=== PATIENT | female | born 1950 | race American Indian/Alaskan Native ===

== ENCOUNTER 2016-09-02 13:12 | Emergency (ER) | payer MEDICAID, MEDICARE ==
[2016-09-02 13:12] VITALS: BMI 34.2
--- NOTE | 2016-09-02 14:20 | RAD ---
PROCEDURE: CHEST RADIOGRAPH, 1 VIEW HISTORY: fall COMPARISON: None available. FINDINGS: LUNGS: The lungs are well inflated. There is linear atelectasis/scarring in the lower lobes. There is no focal consolidation. PLEURA: No pneumothorax or pleural fluid seen. CARDIOVASCULAR: Normal. OSSEOUS STRUCTURES: No significant abnormalities. VISUALIZED UPPER ABDOMEN: Normal. OTHER FINDINGS: None. IMPRESSION: No acute findings.
--- NOTE | 2016-09-02 14:28 | RAD ---
PROCEDURE: Radiographs of the Right Shoulder HISTORY: Fall COMPARISON: No prior. FINDINGS: BONES: There is no acute fracture or bone destruction. Bone alignment and mineralization are normal. JOINTS: There is mild degenerative osteoarthrosis in the acromioclavicular joint. The glenohumeral joint is normal. SOFT TISSUES: Normal. OTHER FINDINGS: None. IMPRESSION: No acute fracture or dislocation.
--- NOTE | 2016-09-02 14:59 | CT ---
PROCEDURE: CT HEAD WITHOUT CONTRAST. HISTORY: Fall COMPARISON: None available. TECHNIQUE: Axial computed tomography images were obtained through the head/brain without intravenous contrast. Radiation dose: Total exam DLP = 1054.79 mGy-cm. This CT exam was performed using one or more of the following dose reduction techniques: Automated exposure control, adjustment of the mA and/or kV according to patient size, and/or use of iterative reconstruction technique. FINDINGS: HEMORRHAGE: No intracranial hemorrhage. BRAIN: Rahman-white matter differentiation is preserved. There is no mass, mass effect or abnormal extra-axial fluid collection. There are symmetric senile calcifications in bilateral basal ganglia. VENTRICLES: There is mild age-related global parenchymal volume loss and proportionate enlargement of the ventricles and cortical sulci. There is nonspecific prominence of bifrontal extra-axial CSF space. CALVARIUM: There is no calvarial fracture or extracranial soft tissue swelling. PARANASAL SINUSES: Unremarkable as visualized. No significant inflammatory changes. MASTOID AIR CELLS: Unremarkable as visualized. No inflammatory changes. OTHER FINDINGS: None. IMPRESSION: No acute intracranial abnormality. Mild age-related global parenchymal volume loss.
--- NOTE | 2016-09-02 15:05 | CT ---
PROCEDURE: CT Cervical Spine without contrast HISTORY: Fall COMPARISON: None available. TECHNIQUE: Axial computed tomography images were obtained of the cervical spine without the use of intravenous contrast. Coronal and sagittal reformatted images were created and reviewed. Radiation dose: Total exam DLP = 521.53 mGy-cm. This CT exam was performed using one or more of the following dose reduction techniques: Automated exposure control, adjustment of the mA and/or kV according to patient size, and/or use of iterative reconstruction technique. FINDINGS: VERTEBRAE: There is normal alignment of the cervical vertebral bodies. There is straightening of the cervical spine with loss of normal cervical lordosis. There is no acute fracture or traumatic anterior listhesis. There is diffuse bone demineralization. The craniocervical junction is normal. The atlantoaxial joint is normal. DISCS/SPINAL CANAL/NEURAL FORAMINA: There is mild multilevel degenerative disc disease due to combination of disc osteophyte complexes, uncovertebral joint hypertrophy and multilevel facet arthropathy, worse at C5-6 with severe left neural foraminal stenosis and mild spinal canal stenosis. PARASPINAL SOFT TISSUES: There is no prevertebral soft tissue thickening. OTHER FINDINGS: No apical pneumothorax. IMPRESSION: No acute fracture or traumatic anterolisthesis.
--- NOTE | 2016-09-02 16:09 | C.PDOC ---
History Of Present Illness 65 year old female presents to the ED with complaints of pain to her head, neck , and right shoulder s/p slipping and falling today. Patient states she had brief LOC and notes the pain to her right shoulder radiates to her chest. She has associated nausea and denies SOB, vomiting, change in vision, dizziness, or any other complaints at this time. - HPI Time Seen by Provider: 09/02/16 13:32 Chief Complaint (Nursing): Trauma History Per: Patient History/Exam Limitations: no limitations Onset/Duration Of Symptoms: Hrs Severity: Mild - Fall Fall:Prior To Injury: Slipped Past Medical History Reviewed: Historical Data, Nursing Documentation, Vital Signs Vital Signs: Last Vital Signs Temp 98.2 F 09/02/16 16:21 Pulse 75 09/02/16 16:21 Resp 18 09/02/16 16:21 BP 169/89 H 09/02/16 16:21 Pulse Ox 95 09/02/16 19:12 - Medical History PMH: Arthritis, Back Problems (HERNIATED), HTN, Hypercholesterolemia, Hyperthyroidism - [facility] Procedures CLOSURE SKIN & SUBCUTANEOUS NEC (02/16/13) CORONAR ARTERIOGR-2 CATH (07/17/05) LEFT HEART CARDIAC CATH (07/17/05) LT HEART ANGIOCARDIOGRAM (07/17/05) TETANUS TOXOID ADMINIST (02/16/13) Family History: States: Unknown Family Hx - Social History Hx Tobacco Use: No Hx Alcohol Use: No - Immunization History Hx Tetanus Toxoid Vaccination: No Hx Influenza Vaccination: No Hx Pneumococcal Vaccination: No Review Of Systems Except As Marked, All Systems Reviewed And Found Negative. Constitutional: Negative for: Fever, Chills Eyes: Negative for: Vision Change Respiratory: Negative for: Shortness of Breath Gastrointestinal: Positive for: Nausea. Negative for: Vomiting, Abdominal Pain Musculoskeletal: Positive for: Neck Pain, Shoulder Pain (+Right shoulder pain), Other (+Head pain). Negative for: Back Pain Neurological: Negative for: Weakness, Numbness, Dizziness Physical Exam - Physical Exam Appears: Non-toxic, No Acute Distress Skin: Normal Color, Warm, Dry Head: Normacephalic, No Tenderness, No Swelling, No Abrasion, No Laceration Eye(s): bilateral: Normal Inspection Oral Mucosa: Moist Neck: Supple Chest: Symmetrical, No Deformity, Tenderness (+Tenderness to the right anterior chest), No Ecchymosis Respiratory: No Accessory Muscle Use Back: Other (+Diffuse tenderness +Tenderness to the right scapula) Extremity: Normal ROM, No Deformity Neurological/Psych: Oriented x3, Normal Speech, Normal Cognition, Normal Motor, Normal Sensation Gait: Steady ED Course And Treatment ECG: Interpreted By Me, Viewed By Me ECG Rhythm: Sinus Rhythm Interpretation Of ECG: +LVH Rate From EC O2 Sat by Pulse Oximetry: 95 (Room air) Pulse Ox Interpretation: Normal - Radiology CXR: Viewed By Me, Read By Radiologist CXR Interpretation: Yes: No Acute Disease - Other Rad Right Shoulder X-ray X-Ray: Viewed By Me, Read By Radiologist Interpretation: Accession No. : [id number]. Patient Name / ID : SYEDA VERNON / [id number]. Exam Date : 09/02/2016 13:58:01 ( Approved ). Study Comment : Sex / Age : F / 65Y. Creator : Jacquelin Macedo MD. Dictator : Jacquelin Macedo MD. Cake Wrapper : Nursing Home Admissions Director : Jacquelin Macedo MD. Approver2 : Report Date : 09/02/2016 14:27:24. My Comment : . PROCEDURE: Radiographs of the Right Shoulder. HISTORY: Fall. COMPARISON: No prior. FINDINGS: BONES: There is no acute fracture or bone destruction. Bone alignment and mineralization are normal. JOINTS: There is mild degenerative osteoarthrosis in the acromioclavicular joint. The glenohumeral joint is normal. SOFT TISSUES : Normal. OTHER FINDINGS: None. IMPRESSION: No acute fracture or dislocation. - CT Scan/US CT Head w/o contrast Other Rad Studies (CT/US): Read By Radiologist, Radiology Report Reviewed CT/US Interpretation: Accession No. : [id number]. Patient Name / ID : SYEDA VERNON / [id number]. Exam Date : 09/02/2016 14:30:04 ( Approved ). Study Comment : Sex / Age : F / 65Y. Creator : Jacquelin Macedo MD. Dictator : Jacquelin Macedo MD. Cake Wrapper : Nursing Home Admissions Director : Jacquelin Macedo MD. Approver2 : Report Date : 09/02/2016 14:57:49. My Comment : . PROCEDURE: CT HEAD WITHOUT CONTRAST. HISTORY: Fall. COMPARISON: None available. TECHNIQUE: Axial computed tomography images were obtained through the head/brain without intravenous contrast. Radiation dose: Total exam DLP = 1054.79 mGy-cm. This CT exam was performed using one or more of the following dose reduction techniques: Automated exposure control, adjustment of the mA and/or kV according to patient size, and/or use of iterative reconstruction technique. FINDINGS: HEMORRHAGE: No intracranial hemorrhage. BRAIN: Rahman-white matter differentiation is preserved. There is no mass, mass effect or abnormal extra- axial fluid collection. There are symmetric senile calcifications in bilateral basal ganglia. VENTRICLES: There is mild age-related global parenchymal volume loss and proportionate enlargement of the ventricles and cortical sulci. There is nonspecific prominence of bifrontal extra-axial CSF space. CALVARIUM: There is no calvarial fracture or extracranial soft tissue swelling. PARANASAL SINUSES: Unremarkable as visualized. No significant inflammatory changes. MASTOID AIR CELLS: Unremarkable as visualized. No inflammatory changes. OTHER FINDINGS: None. IMPRESSION: No acute intracranial abnormality. Mild age-related global parenchymal volume loss. CT Cervical Spine w/o contrast Other Rad Studies (CT/US): Read By Radiologist, Radiology Report Reviewed CT/US Interpretation: Accession No. : [id number]. Patient Name / ID : SYEDA VERNON / [id number]. Exam Date : 09/02/2016 14:32:55 ( Approved ). Study Comment : Sex / Age : F / 65Y. Creator : Jacquelin Macedo MD. Dictator : Jacquelin Macedo MD. Cake Wrapper : Nursing Home Admissions Director : Jacquelin Macedo MD. Approver2 : Report Date : 09/02/2016 15:03:51. My Comment : . PROCEDURE: CT Cervical Spine without contrast. HISTORY: Fall. COMPARISON: None available. TECHNIQUE: Axial computed tomography images were obtained of the cervical spine without the use of intravenous contrast. Coronal and sagittal reformatted images were created and reviewed. Radiation dose: Total exam DLP = 521.53 mGy- cm. This CT exam was performed using one or more of the following dose reduction techniques: Automated exposure control, adjustment of the mA and/or kV according to patient size, and/or use of iterative reconstruction technique. FINDINGS: VERTEBRAE: There is normal alignment of the cervical vertebral bodies. There is straightening of the cervical spine with loss of normal cervical lordosis. There is no acute fracture or traumatic anterior listhesis. There is diffuse bone demineralization. The craniocervical junction is normal. The atlantoaxial joint is normal. DISCS/SPINAL CANAL/NEURAL FORAMINA: There is mild multilevel degenerative disc disease due to combination of disc osteophyte complexes, uncovertebral joint hypertrophy and multilevel facet arthropathy, worse at C5-6 with severe left neural foraminal stenosis and mild spinal canal stenosis. PARASPINAL SOFT TISSUES: There is no prevertebral soft tissue thickening. OTHER FINDINGS: No apical pneumothorax. IMPRESSION: No acute fracture or traumatic anterolisthesis. Progress Note: CT Cervical Spine w/o contrast, CT Head w/o contrast, CXR, EKG, Right Shoulder X-ray ordered and reviewed. Patient treated with Tylenol. On re -exam patient is ambulatory in ED, denies SOB, denies chest pain. Family member is on the bedside. Patient is stable to be d/c home. Rx given and patient advised to follow up with her PMD and to return to Ed immediately if she feels worse. Disposition - Disposition Disposition: HOME/ ROUTINE Disposition Time: 16:05 Condition: IMPROVED Additional Instructions: Follow up with PMD within 1-2 days. Return to ED if feel worse. Prescriptions: oxyCODONE/Acetaminophen [Percocet 5/325 mg Tab] 1 tab PO QID PRN #20 tab PRN Reason: Pain Instructions: Contusion in Adults (ED), Head Injury (ED) - Clinical Impression Clinical Impression: Multiple contusions, Minor closed head injury - PA / CLERK RATING / Resident Statement MD/DO has reviewed & agrees with the documentation as recorded. - Scribe Statement The provider has reviewed the documentation as recorded by the Scribe Manoj Chung. All medical record entries made by the Scribe were at my direction and personally dictated by me. I have reviewed the chart and agree that the record accurately reflects my personal performance of the history, physical exam, medical decision making, and the department course for this patient. I have also personally directed, reviewed, and agree with the discharge instructions and disposition.
[2016-09-02 16:21] VITALS: BP 169/89; PULSE 75; RESP 18; TEMP 98.2
[2016-09-02 19:02] VITALS: O2SAT 95
--- NOTE | 2016-09-10 08:38 | CARD ---
APPROVED REPORT EKG Measurement Heart [id number] <Conclusion> Normal sinus rhythm Minimal voltage criteria for LVH, may be normal variant Borderline ECG
== END 2016-09-02 16:35 | disposition home or self-care (01) ==
LOC: C.ER 13:12
DX: T14.8 Other injury of unspecified body region (principal); W01.0XXA Fall on same level from slipping, tripping and stumbling without subsequent striking against object, initial encounter

== ENCOUNTER 2017-05-13 12:35 | Emergency (ER) | payer MEDICARE ==
[2017-05-13 12:36] VITALS: BMI 34.2
[2017-05-13 12:49] VITALS: BP 122/77; PULSE 89; RESP 20; TEMP 98; O2SAT 98
[2017-05-13] MEDS ORDERED: Bacitracin 500 Units/gm Oint Foilpak UD TOP ONE (13:48)
[2017-05-13] MEDS ORDERED: Bacitracin 500 Units/gm Oint Foilpak UD ONE (14:04)
--- NOTE | 2017-05-13 14:16 | RAD ---
PROCEDURE: Right Knee Radiographs. HISTORY: s/p fall COMPARISON: None. FINDINGS: BONES: . No fracture. Diffuse spurring prior JOINTS: Medial femoral tibial and patellofemoral osteoarthritis. JOINT EFFUSION: None. OTHER FINDINGS: None. IMPRESSION: No fracture or dislocation. Osteoarthrosis.
--- NOTE | 2017-05-13 14:25 | RAD ---
PROCEDURE: Radiographs of the right tibia and fibula. HISTORY: s/p fall COMPARISON: None available. TECHNIQUE: Frontal and lateral views obtained. FINDINGS: BONES: No fracture or destructive lesion. . Tibial spine spurring. Medial knee joint line spurring posterior patellar spurring JOINT SPACES: Patellofemoral and medial femoral tibial joint space narrowing OTHER FINDINGS: Few scattered anterior phleboliths IMPRESSION: No fracture or dislocation. Knee osteoarthrosis
--- NOTE | 2017-05-13 14:32 | C.PDOC ---
History Of Present Illness 66 year old female presents to the ED for evaluation of bilateral neck, shoulder , lower back and bilateral knee pain after she tripped and fell forward on uneven pavement yesterday. Patient states she fell and landed onto her hands and knees. She denies head injury/LOC, urinary/bowel incontinence, extremity numbness/weakness. Time Seen by Provider: 05/13/17 13:19 Chief Complaint (Nursing): Back Pain History Per: Patient History/Exam Limitations: no limitations Onset/Duration Of Symptoms: Hrs Current Symptoms Are (Timing): Still Present Quality Of Discomfort: "Pain" Previous Symptoms: Back Pain, Neck Pain Associated Symptoms: denies: Incontinence, New Weakness, New Numbness Additional History Per: Patient Past Medical History Reviewed: Historical Data, Nursing Documentation, Vital Signs Vital Signs: Last Vital Signs Temp 98.0 F 05/13/17 12:46 Pulse 89 05/13/17 12:46 Resp 20 05/13/17 14:52 BP 122/77 05/13/17 12:46 Pulse Ox 98 05/15/17 13:55 - Medical History PMH: Arthritis, Back Problems (HERNIATED), HTN, Hypercholesterolemia, Hyperthyroidism Denies: Chronic Kidney Disease Surgical History: No Surg Hx - [facility] Procedures CLOSURE SKIN & SUBCUTANEOUS NEC (02/16/13) CORONAR ARTERIOGR-2 CATH (07/17/05) LEFT HEART CARDIAC CATH (07/17/05) LT HEART ANGIOCARDIOGRAM (07/17/05) TETANUS TOXOID ADMINIST (02/16/13) Family History: States: Unknown Family Hx - Social History Hx Tobacco Use: No Hx Alcohol Use: No Hx Substance Use: No - Immunization History Hx Tetanus Toxoid Vaccination: No Hx Influenza Vaccination: Yes Hx Pneumococcal Vaccination: No Review Of Systems Genitourinary: Negative for: Incontinence Musculoskeletal: Positive for: Neck Pain, Shoulder Pain (bilateral ), Back Pain (lower), Other (bilateral knee pain ) Neurological: Positive for: Other (no head injury, no LOC ). Negative for: Weakness, Numbness Physical Exam - Physical Exam Appears: Well, Non-toxic, No Acute Distress Skin: Warm, Dry, Ecchymosis (to right knee ), Other (abrasion to right 5th digit and right knee ) Head: Atraumatic, Normacephalic Eye(s): bilateral: Normal Inspection Oral Mucosa: Moist Neck: No Midline Cervical Tenderness, Paracervical Tenderness (bilaterally ) Chest: Symmetrical, No Deformity, No Tenderness Cardiovascular: Rhythm Regular, No Murmur Respiratory: Normal Breath Sounds, No Rales, No Rhonchi, No Wheezing Gastrointestinal/Abdominal: Soft, No Tenderness, No Guarding, No Rebound Back: No Vertebral Tenderness, Other (trapezius tenderness bilaterally ) Extremity: Normal ROM (shoulders and elbows ), Tenderness (right knee and tibia) , No Calf Tenderness, Capillary Refill (less than 2 seconds ), No Deformity, No Swelling Pulses: Left Radial: Normal, Right Radial: Normal, Left Dorsalis Pedis: Normal, Right Dorsalis Pedis: Normal Neurological/Psych: Oriented x3, Normal Speech, Normal Cognition, Normal Motor, Normal Sensation Gait: Steady ED Course And Treatment O2 Sat by Pulse Oximetry: 98 (on RA) Pulse Ox Interpretation: Normal - Other Rad right knee XR X-Ray: Interpreted by Me, Viewed By Me, Read By Radiologist Interpretation: PROCEDURE: Right Knee Radiographs. HISTORY: s/p fall. COMPARISON: None. FINDINGS: BONES: . No fracture. Diffuse spurring prior. JOINTS: Medial femoral tibial and patellofemoral osteoarthritis. JOINT EFFUSION: None. OTHER FINDINGS: None. IMPRESSION: No fracture or dislocation. Osteoarthrosis. tibia/fibula XR X-Ray: Interpreted by Me, Viewed By Me, Read By Radiologist Interpretation: PROCEDURE: Radiographs of the right tibia and fibula. HISTORY : s/p fall. COMPARISON: None available. TECHNIQUE: Frontal and lateral views obtained. FINDINGS: BONES: No fracture or destructive lesion. . Tibial spine spurring. Medial knee joint line spurring posterior patellar spurring. JOINT SPACES: Patellofemoral and medial femoral tibial joint space narrowing. OTHER FINDINGS: Few scattered anterior phleboliths. IMPRESSION: No fracture or dislocation. Knee osteoarthrosis Medical Decision Making Medical Decision Making: pt s/p trip and fall on uneven pavement with pain to bilateral knees, shoulder, back and hand., Right Tibia Ribula XR ordered. Right knee XR ordered. no fx noted on right knee or tib fib. Tylenol PO administered. Bacitracin TOP applied. On reassessment, patient is resting comfortably, showing no signs of distress and reports an improvement in her symptoms. Patient is ambulatory in the ED without distress and is stable for discharge. Patient is advised to follow up with her PMD within 1-2 days for further evaluation. Disposition Counseled Patient/Family Regarding: Studies Performed, Diagnosis, Need For Followup, Rx Given - Disposition Referrals: Frederick Eden MD [Staff Provider] - Disposition: HOME/ ROUTINE Disposition Time: 14:42 Condition: STABLE Additional Instructions: Please use warm compress or hot water bottle on both shoulder to help decrease pain. continue taking Naproxen twice a day. Add Tylenol 1000 mg every 6 hours. Take muscle relaxant at bedtime, makes you sleepy- Follow up with Dr Eden in a few days. Warm baths or showers may help with pain. Put antibiotic ointment on abrasions. Prescriptions: Acetaminophen [Tylenol Extra Strength] 1,000 mg PO Q6 #40 tablet Cyclobenzaprine [Cyclobenzaprine HCl] 5 mg PO HS #6 tab Instructions: Cervical Strain (DC), Musculoskeletal Pain (ED) Forms: [facility] (B[place]an), General Discharge Instructions - Clinical Impression Clinical Impression: Fall from slip, trip, or stumble, Muscle strain, multiple sites - PA / PUMPING SUPERVISOR / Resident Statement MD/DO has reviewed & agrees with the documentation as recorded. - Scribe Statement The provider has reviewed the documentation as recorded by the Scribe (Roberta Cook) All medical record entries made by the Scribe were at my direction and personally dictated by me. I have reviewed the chart and agree that the record accurately reflects my personal performance of the history, physical exam, medical decision making, and the department course for this patient. I have also personally directed, reviewed, and agree with the discharge instructions and disposition.
== END 2017-05-13 14:52 | disposition home or self-care (01) ==
LOC: C.ER 12:35
DX: T14.8XXA Other injury of unspecified body region, initial encounter (principal); W01.0XXA Fall on same level from slipping, tripping and stumbling without subsequent striking against object, initial encounter; E78.00 Pure hypercholesterolemia, unspecified; I10 Essential (primary) hypertension; E05.90 Thyrotoxicosis, unspecified without thyrotoxic crisis or storm

== ENCOUNTER 2017-07-09 10:52 | Inpatient (IN) | payer MEDICARE ==
[2017-07-09 10:53] VITALS: BMI 34.2
[2017-07-09] MEDS ORDERED: Sodium Chloride 0.9% 1,000 ML IV ONE (11:42)
[2017-07-09 12:30] LABS: BASO % 0.2 % (0.0-2.0); EOS % 0.3 % (0.0-4.0); HEMOGLOBIN 13.5 g/dL (11.0-16.0); LYMPH # 0.5 K/uL (1.0-4.3); LYMPH % 5.5 % (20.0-40.0); MEAN CELL VOLUME 91.5 fL (81.0-99.0); MEAN CORPUSCULAR HEMOGLOBIN 31.3 pg (27.0-31.0); MEAN CORPUSCULAR HGB CONC 34.3 g/dL (33.0-37.0); MEAN PLATELET VOLUME 7.7 fL (7.2-11.7); MONO # 0.4 K/uL (0.0-0.8); NEUT # 7.9 K/uL (1.8-7.0); PLATELET COUNT 357 K/uL (130-400); RBC 4.31 Mil/uL (3.80-5.20); RED CELL DISTRIBUTION WIDTH 13.6 % (11.5-14.5); WHITE BLOOD COUNT 8.8 K/uL (4.8-10.8)
[2017-07-09 12:54] LABS: ALB/GLOB RATIO 1.2 (1.0-2.1); ALBUMIN 4.1 g/dL (3.5-5.0); ALT/SGPT 31 U/L (9-52); AST/SGOT 24 U/L (14-36); BLOOD UREA NITROGEN 35 mg/dL (7-17); CALCIUM 9.3 mg/dl (8.6-10.4); GFR AFRICAN-AMERICAN > 60; GFR NON-AFRICAN AMERICAN > 60; LIPASE 114 U/L (23-300)
[2017-07-09 13:15] LABS: BANDS 5 % (0-2); LYMPHOCYTE 5 % (20-40); MONOCYTE 4 % (0-10); NEUTROPHIL 86 % (50-75); OVALOCYTES SLIGHT; PLATELET ESTIMATE NORMAL (NORMAL); TOTAL CELLS COUNTED 100
--- NOTE | 2017-07-09 13:25 | RAD ---
HISTORY: CP HW3 COMPARISON: Chest x-ray performed 09/02/16 TECHNIQUE: Chest, one view. FINDINGS: Examination limited by habitus. LUNGS: Mild bibasilar atelectasis. No focal consolidation. Please note that chest x-ray has limited sensitivity for the detection of pulmonary masses. PLEURA: No significant pleural effusion identified. No definite pneumothorax . CARDIOVASCULAR: The cardiomediastinal silhouette appears within normal limits of size. OSSEOUS STRUCTURES: No acute osseous abnormality identified. VISUALIZED UPPER ABDOMEN: Elevation of the right hemidiaphragm. OTHER FINDINGS: None. IMPRESSION: Mild bibasilar atelectasis.
[2017-07-09 14:16] LABS: CK-MB 1.15 ng/mL (0.0-3.38)
--- NOTE | 2017-07-09 14:21 | C.PDOC ---
History Of Present Illness Patient presents to ED c/o epigastric abdominal pain, nausea and vomiting since 5am, now associated with lightheadedness. She denies cough, fever, diarrhea, dysuria/hematuria. Time Seen by Provider: 07/09/17 11:18 Chief Complaint (Nursing): Abdominal Pain History Per: Patient History/Exam Limitations: no limitations Onset/Duration Of Symptoms: Hrs Current Symptoms Are (Timing): Better Severity: Moderate Quality Of Discomfort: "Pain" Associated Symptoms: Nausea, Vomiting Abnormal Vaginal Bleeding: No Past Medical History Reviewed: Historical Data, Nursing Documentation, Vital Signs Vital Signs: Last Vital Signs Temp 97.9 F 07/09/17 11:22 Pulse 76 07/09/17 11:22 Resp 16 07/09/17 11:22 BP 107/70 07/09/17 11:22 Pulse Ox 96 07/09/17 15:10 - Medical History PMH: Arthritis, Back Problems (HERNIATED), HTN, Hypercholesterolemia, Hyperthyroidism - [facility] Procedures CLOSURE SKIN & SUBCUTANEOUS NEC (02/16/13) CORONAR ARTERIOGR-2 CATH (07/17/05) LEFT HEART CARDIAC CATH (07/17/05) LT HEART ANGIOCARDIOGRAM (07/17/05) TETANUS TOXOID ADMINIST (02/16/13) Family History: States: No Known Family Hx - Social History Hx Tobacco Use: No Hx Alcohol Use: No Hx Substance Use: No - Immunization History Hx Tetanus Toxoid Vaccination: No Hx Influenza Vaccination: Yes Hx Pneumococcal Vaccination: No Review Of Systems Except As Marked, All Systems Reviewed And Found Negative. Constitutional: Negative for: Fever, Chills Cardiovascular: Negative for: Chest Pain, Palpitations Respiratory: Negative for: Cough, Shortness of Breath Gastrointestinal: Positive for: Nausea, Vomiting, Abdominal Pain. Negative for : Diarrhea Genitourinary: Negative for: Dysuria, Hematuria Physical Exam - Physical Exam Appears: Well, Non-toxic, In Acute Distress (in mild pain ) Eye(s): bilateral: Normal Inspection Oral Mucosa: Moist Cardiovascular: Rhythm Regular Respiratory: Normal Breath Sounds, No Rales, No Rhonchi, No Wheezing Gastrointestinal/Abdominal: Bowel Sounds, Soft, Tenderness (mild epigastric TTP) , No Distention, No Guarding, No Rebound Neurological/Psych: Oriented x3 ED Course And Treatment - Laboratory Results Result Diagrams: 07/09/17 12:22 07/09/17 12:22 ECG: Interpreted By Me, Viewed By Me ECG Rhythm: Sinus Rhythm (NSR 89 bpm, left axis deviation, 1mm ST depressions V3 -V5 - new since 09/02/16) ECG Interpretation: Abnormal O2 Sat by Pulse Oximetry: 96 (RA) Pulse Ox Interpretation: Normal - Other Rad CXR X-Ray: Viewed By Me, Read By Radiologist Interpretation: Accession No. : [id number]. Patient Name / ID : SYEDA VERNON / [id number]. Exam Date : 07/09/2017 12:55:39 ( Approved ). Study Comment : Sex / Age : F / [id number]. Creator : Anuradha Dey MD. Dictator : Anuradha Dey MD. Purification Operator Helper : Power Wood Sawyer : Anuradha Dey MD. Approver2 : Report Date : 07/09/2017 13:23:52. My Comment : . HISTORY: CP HW3. COMPARISON: Chest x-ray performed 09/02/16. TECHNIQUE: Chest, one view. FINDINGS: Examination limited by habitus. LUNGS: Mild bibasilar atelectasis. No focal consolidation. Please note that chest x-ray has limited sensitivity for the detection of pulmonary masses. PLEURA: No significant pleural effusion identified. No definite pneumothorax . CARDIOVASCULAR: The cardiomediastinal silhouette appears within normal limits of size. OSSEOUS STRUCTURES: No acute osseous abnormality identified. VISUALIZED UPPER ABDOMEN : Elevation of the right hemidiaphragm. OTHER FINDINGS: None. IMPRESSION: Mild bibasilar atelectasis. Progress Note: Blood work ordered and reviewed. 12:40- Patient now states earlier today she was also having chest pain, nonradiating, not associated with SOB. YOON and EKG ordered. 3:15PM- Discussed patient wit Dr. Lamar, agrees with admission + Dr. Jung for cardiology (covering Dr. Eden). - Physician Consult Information Physician Contacted: Frederick Eden Outcome Of Conversation: Spoke with PMD, would like patient admitted under Dr. Lamar's service (covering him until tomrorrow). Pending call back. Disposition - Disposition Forms: [facility] (Indonesian)
[2017-07-09] MEDS ORDERED: Morphine 4 MG/ML VIAL ONE (16:03)
--- NOTE | 2017-07-09 19:01 | CP.PCM.HP ---
History of Present Illness - History of Present Illness History of Present Illness: Patient presents to ED c/o epigastric abdominal pain, nausea and vomiting since 5am, now associated with lightheadedness. She denies cough, fever, diarrhea, dysuria/hematuria. Has abnormal EKG admitted for ACS - Medical History PMH: Arthritis, Back Problems (HERNIATED), HTN, Hypercholesterolemia, Hyperthyroidism Present on Admission - Present on Admission Any Indicators Present on Admission: No History of DVT/PE: No History of Uncontrolled Diabetes: No Urinary Catheter: No Decubitus Ulcer Present: No History Surgical Site Infection Following: None Review of Systems - Constitutional Constitutional: As Per HPI - EENT Eyes: absent: As Per HPI, Blind Spots, Blurred Vision, Change in Vision, Decreased Night Vision, Diplopia, Discharge, Dry Eye, Exophthalmos, Floaters, Irritation, Itchy Eyes, Loss of Peripheral Vision, Pain, Photophobia, Requires Corrective Lenses, Sees Flashes, Spots in Vision, Tunnel Vision, Other Visual Disturbances, Loss of Vision, Other Ears: absent: As Per HPI, Decreased Hearing, Ear Discharge, Ear Pain, Tinnitus, Abnormal Hearing, Disequilibrium, Dizziness, Other Nose/Mouth/Throat: absent: As Per HPI, Epistaxis, Nasal Congestion, Nasal Discharge, Nasal Obstruction, Nasal Trauma, Nose Pain, Post Nasal Drip, Sinus Pain, Sinus Pressure, Bleeding Gums, Change in Voice, Dental Pain, Dry Mouth, Dysphagia, Halitosis, Hoarsness, Lip Swelling, Mouth Lesions, Mouth Pain, Odynophagia, Sore Throat, Throat Swelling, Tongue Swelling, Facial Pain, Neck Pain, Neck Mass, Other - Cardiovascular Cardiovascular: Chest Pain with Activity - Respiratory Respiratory: absent: As Per HPI, Cough, Dyspnea, Hemoptysis, Dyspnea on Exertion , Wheezing, Snoring, Stridor, Pain on Inspiration, Chest Congestion, Excessive Mucous Production, Change in Mucous Color, Pain with Coughing, Other - Gastrointestinal Gastrointestinal: As Per HPI, Abdominal Pain - Genitourinary Genitourinary: absent: As Per HPI, Change in Urinary Stream, Difficulty Urinating, Dysuria, Flank Pain, Hematuria, Pyuria, Nocturia, Urinary Incontinence, Urinary Frequency, Urinary Hesitance, Urinary Urgency, Voiding Freq/Small Amts, Freq UTI, Hx Renal/Bladder Calculi, Hx /Renal Surgery, Bladder Distension, Other - Reproductive: Female Reproductive:Female: absent: As Per HPI, Amenorrhea, Amenorrhea/ Control, Currently Menstual, Cycle <21 Days, Cycle >35 Days, Cycle Variable, Menses 1-7 Days, Menses >/= 8 Days, Menses Variable, Cycle > 4 Weeks Between, No Menses for 6 Months, Heavy Menses, Light Menses, Normal Menses, Spotting Between Cycles , S/P Hysterectomy, Menopausal, Post Menopausal, Premenarche, Abnormal Vaginal Bleeding, Dysmenorrhea, Dyspareunia, Genital Lesions, Genital Pruritis, Pelvic Pain, Prolapse Symptoms, Sexual Dysfunction, Vaginal Discharge, Vaginal Dryness , Vaginal Odor, Vaginal Pruritis, Other - Menstruation Menstruation: absent: As Per HPI, Amenorrhea, Amenorrhea/ Control, Currently Menstual, Cycle <21 Days, Cycle >35 Days, Cycle Variable, Menses 1-7 Days, Menses >/= 8 Days, Menses Variable, Cycle > 4 Weeks Between, No Menses for 6 Months, Heavy Menses, Light Menses, Normal Menses, Spotting Between Cycles , S/P Hysterectomy, Menopausal, Post Menopausal, Premenarche, Abnormal Vaginal Bleeding, Dysmenorrhea, Other - Musculoskeletal Musculoskeletal: absent: As Per HPI, Abnormal Gait, Arthralgias, Atrophy, Back Pain, Deformity, Joint Swelling, Limited Range of Motion, Loss of Height, Muscle Cramps, Muscle Weakness, Myalgias, Neck Pain, Numbness, Radiating Pain into Limb, Stiffness, Tingling, Other - Integumentary Integumentary: absent: As Per HPI, Acne, Alopecia, Bleeding Lesions, Change in Hair, Change in Nails, Change in Pigmentation, Changing Lesions, Dry Skin, Erythema, Furuncle, Hirsutism, Lesions, New Lesions, Non-Healing Lesions, Photosensitivity, Pruritus, Rash, Skin Pain, Skin Ulcer, Sores, Striae, Swelling , Unusual Bruising, Wounds, Jaundice, Other - Neurological Neurological: absent: As Per HPI, Abnormal Gait, Abnormal Hearing, Abnormal Movements, Abnormal Speech, Behavioral Changes, Burning Sensations, Confusion, Convulsions, Disequilibrium, Dizziness, Numbness, Focal Weakness, Frequent Falls , Headaches, Lack of Coordination, Loss of Vision, Memory Loss, Paresthesias, Radicular Pain, Restless Legs, Sensory Deficit, Syncope, Tingling, Tremor, Vertigo, Weakness, Other Visual Disturbances, Other - Psychiatric Psychiatric: absent: As Per HPI, Abnormal Sleep Pattern, Anhedonia, Anxiety, Auditory Hallucinations, Behavioral Changes, Change in Appetite, Change in Libido, Confusion, Depression, Difficulty Concentrating, Hallucinations, Homicidal Ideation, Hopelessness, Irritability, Memory Loss, Mood Swings, Panic Attacks, Paranoia, Suicidal Ideation, Visual Hallucinations, Tactile Hallucinations, Other - Endocrine Endocrine: absent: As Per HPI, Change in Body Appearance, Change in Libido, Cold Intolorance, Deepening of Voice, Excessive Sweating, Fatigue, Flushing, Heat Intolorance, Increase in Ring/Shoe/Hat Size, Palpitations, Polydipsia, Polyphagia, Polyuria, Other - Hematologic/Lymphatic Hematologic: absent: As Per HPI, Easy Bleeding, Easy Bruising, Lymphadenopathy, Other Past Patient History - Past Medical History & Family History Past Medical History?: Yes - Past Social History Smoking Status: Never Smoked - CARDIAC Hx Hypercholesterolemia: Yes Hx Hypertension: Yes - PULMONARY Hx Respiratory Disorders: No - NEUROLOGICAL Hx Neurological Disorder: Yes Other/Comment: Diabetic Neuropathy - HEENT Hx HEENT Problems: No - RENAL Hx Chronic Kidney Disease: No - ENDOCRINE/METABOLIC Hx Hyperthyroidism: Yes - HEMATOLOGICAL/ONCOLOGICAL Hx Blood Disorders: No - INTEGUMENTARY Hx Dermatological Problems: No - MUSCULOSKELETAL/RHEUMATOLOGICAL Hx Arthritis: Yes - GASTROINTESTINAL Hx Gastrointestinal Disorders: Yes Hx Hemorrhoids: Yes - GENITOURINARY/GYNECOLOGICAL Hx Genitourinary Disorders: No - PSYCHIATRIC Hx Substance Use: No - SURGICAL HISTORY Hx Surgeries: Yes Hx Cardiac Catheterization: Yes Hx Dilation and Curettage: Yes - ANESTHESIA Hx Anesthesia: Yes Hx Anesthesia Reactions: No Hx Malignant Hyperthermia: No Meds Allergies/Adverse Reactions: Allergies Allergy/AdvReac Type Severity Reaction Status Date / Time No Known Allergies Allergy Verified 05/13/17 12:49 Physical Exam - Constitutional Appears: Non-toxic, Chronically Ill - Head Exam Head Exam: NORMOCEPHALIC - Eye Exam Eye Exam: PERRL. absent: Scleral icterus - ENT Exam ENT Exam: Mucous Membranes Dry - Neck Exam Neck exam: Negative for: Lymphadenopathy - Respiratory Exam Respiratory Exam: Decreased Breath Sounds - Cardiovascular Exam Cardiovascular Exam: REGULAR RHYTHM, +S1, +S2 - GI/Abdominal Exam GI & Abdominal Exam: Diminished Bowel Sounds, Soft. absent: Tenderness - Rectal Exam Rectal Exam: Deferred - Exam Exam: NORMAL INSPECTION - Extremities Exam Extremities exam: Negative for: pedal edema - Back Exam Back exam: absent: CVA tenderness (L), CVA tenderness (R), paraspinal tenderness - Neurological Exam Neurological exam: Alert, CN II-XII Intact, Oriented x3 - Psychiatric Exam Psychiatric exam: Normal Mood Results - Vital Signs Recent Vital Signs: Last Vital Signs Temp 98.1 F 07/09/17 16:36 Pulse 90 07/09/17 18:00 Resp 20 07/09/17 16:36 BP 131/79 07/09/17 16:36 Pulse Ox 98 07/09/17 17:09 - Labs Result Diagrams: 07/09/17 12:22 07/09/17 12:22 Labs: Laboratory Results - last 24 hr 07/09/17 07/09/17 12:22 12:22 WBC 8.8 RBC 4.31 Hgb 13.5 Hct 39.5 MCV 91.5 D MCH 31.3 H MCHC 34.3 RDW 13.6 Plt Count 357 MPV 7.7 Neut % (Auto) 90.0 H Lymph % (Auto) 5.5 L [place] % (Auto) 4.0 Eos % (Auto) 0.3 Baso % (Auto) 0.2 Neut # (Auto) 7.9 H Lymph # (Auto) 0.5 L [place] # (Auto) 0.4 Eos # (Auto) 0.0 Baso # (Auto) 0.0 Neutrophils % (Manual) 86 H Band Neutrophils % 5 H Lymphocytes % (Manual) 5 L Monocytes % (Manual) 4 Platelet Estimate Normal Ovalocytes Slight Sodium 142 Potassium 4.0 Chloride 103 Carbon Dioxide 27 Anion Gap 17 BUN 35 H Creatinine 0.8 Est GFR ( Amer) > 60 Est GFR (Non-Af Amer) > 60 Random Glucose 117 H Calcium 9.3 Total Bilirubin 0.6 AST 24 ALT 31 Alkaline Phosphatase 64 Total Creatine Kinase 73 CK-MB (Mass) 1.15 Troponin I < 0.0120 Total Protein 7.5 Albumin 4.1 Globulin 3.3 Albumin/Globulin Ratio 1.2 Lipase 114 Assessment & Plan (1) Chest pain Status: Acute (2) Abdominal pain Status: Acute (3) Abdominal pain Status: Acute (4) Abnormal EKG Status: Acute (5) Abnormal EKG Status: Acute - Assessment and Plan (Free Text) Assessment: admit for ACS multiple risk factors will need cardiac cath
[2017-07-09] MEDS: Sodium Chloride 0.45% 1,000 ML IV SCH (20:57)
[2017-07-09] MEDS: Rosuvastatin Calcium 2.5 mg Tab PO SCH (21:17)
[2017-07-09 21:23] LABS: SQUAMOUS EPITHIAL 1 /hpf (0-5); URINE BACTERIA RARE (<OCC); URINE BILIRUBIN NEGATIVE (NEGATIVE); URINE BLOOD NEGATIVE (NEGATIVE); URINE CLARITY Clear (Clear); URINE COLOR Yellow (YELLOW); URINE GLUCOSE (UA) 3+ mg/dL (Normal); URINE LEUKOCYTE ESTERASE NEG Leu/uL (Negative); URINE NITRATE NEGATIVE (NEGATIVE); URINE PROTEIN NEGATIVE (NEGATIVE); URINE UROBILINOGEN NORMAL mg/dL (0.2-1.0)
[2017-07-09 21:33] LABS: CREATININE, RANDOM URINE 67.7 mg/dL
[2017-07-09] MEDS: (Novolog) Insulin Aspart, Recombinant 100 u/ml 10 ml vial SC SCH (21:59)
--- NOTE | 2017-07-09 23:28 | CP.PCM.CON ---
History of Present Illness - History of Present Illness History of Present Illness: pt is seen and examined, full consult is dictated #[id number] Past Patient History - Past Medical History & Family History Past Medical History?: Yes - Past Social History Smoking Status: Never Smoked - CARDIAC Hx Hypercholesterolemia: Yes Hx Hypertension: Yes - PULMONARY Hx Respiratory Disorders: No - NEUROLOGICAL Hx Neurological Disorder: Yes Other/Comment: Diabetic Neuropathy - HEENT Hx HEENT Problems: No - RENAL Hx Chronic Kidney Disease: No - ENDOCRINE/METABOLIC Hx Hyperthyroidism: Yes - HEMATOLOGICAL/ONCOLOGICAL Hx Blood Disorders: No - INTEGUMENTARY Hx Dermatological Problems: No - MUSCULOSKELETAL/RHEUMATOLOGICAL Hx Arthritis: Yes - GASTROINTESTINAL Hx Gastrointestinal Disorders: Yes Hx Hemorrhoids: Yes - GENITOURINARY/GYNECOLOGICAL Hx Genitourinary Disorders: No - PSYCHIATRIC Hx Substance Use: No - SURGICAL HISTORY Hx Surgeries: Yes Hx Cardiac Catheterization: Yes Hx Dilation and Curettage: Yes - ANESTHESIA Hx Anesthesia: Yes Hx Anesthesia Reactions: No Hx Malignant Hyperthermia: No Meds Allergies/Adverse Reactions: Allergies Allergy/AdvReac Type Severity Reaction Status Date / Time No Known Allergies Allergy Verified 05/13/17 12:49 - Medications Medications: Current Medications Heparin Sodium (Porcine) (Heparin) 5,000 units SC Q12 [facility] Last Admin: 07/09/17 21:23 Dose: 5,000 units Sodium Chloride (Sodium Chloride 0.45%) 1,000 mls @ 70 mls/hr IV .[id number] [facility] Last Admin: 07/09/17 20:57 Dose: 70 mls/hr Insulin Aspart (Novolog) 0 unit SC ACHS [facility] PRN Reason: Protocol Last Admin: 07/09/17 21:59 Dose: Not Given Losartan Potassium (Cozaar) 100 mg PO DAILY [facility] Pantoprazole Sodium (Protonix Inj) 40 mg IVP DAILY [facility] Rosuvastatin Calcium (Crestor) 2.5 mg PO HS [facility] Last Admin: 07/09/17 21:17 Dose: 2.5 mg Results - Vital Signs Recent Vital Signs: Last Vital Signs Temp 98.5 F 07/09/17 17:30 Pulse 90 07/09/17 18:00 Resp 18 07/09/17 17:30 BP 113/72 07/09/17 17:30 Pulse Ox 98 07/09/17 21:09 - Labs Result Diagrams: 07/09/17 12:22 07/09/17 12:22 Labs: Laboratory Results - last 24 hr 07/09/17 07/09/17 07/09/17 12:22 12:22 18:55 WBC 8.8 RBC 4.31 Hgb 13.5 Hct 39.5 MCV 91.5 D MCH 31.3 H MCHC 34.3 RDW 13.6 Plt Count 357 MPV 7.7 Neut % (Auto) 90.0 H Lymph % (Auto) 5.5 L [place] % (Auto) 4.0 Eos % (Auto) 0.3 Baso % (Auto) 0.2 Neut # (Auto) 7.9 H Lymph # (Auto) 0.5 L [place] # (Auto) 0.4 Eos # (Auto) 0.0 Baso # (Auto) 0.0 Neutrophils % (Manual) 86 H Band Neutrophils % 5 H Lymphocytes % (Manual) 5 L Monocytes % (Manual) 4 Platelet Estimate Normal Ovalocytes Slight Sodium 142 Potassium 4.0 Chloride 103 Carbon Dioxide 27 Anion Gap 17 BUN 35 H Creatinine 0.8 Est GFR ( Amer) > 60 Est GFR (Non-Af Amer) > 60 POC Glucose (mg/dL) 110 Random Glucose 117 H Calcium 9.3 Total Bilirubin 0.6 AST 24 ALT 31 Alkaline Phosphatase 64 Total Creatine Kinase 73 CK-MB (Mass) 1.15 Troponin I < 0.0120 Total Protein 7.5 Albumin 4.1 Globulin 3.3 Albumin/Globulin Ratio 1.2 Lipase 114 Urine Color Urine Clarity Urine pH Ur Specific [place] Urine Protein Urine Glucose (UA) Urine Ketones Urine Blood Urine Nitrate Urine Bilirubin Urine Urobilinogen Ur Leukocyte Esterase Urine WBC (Auto) Urine RBC (Auto) Ur Squamous Epith Cells Urine Bacteria Urine Osmolality Ur Random Creatinine Ur Random Sodium 07/09/17 07/09/17 21:00 21:00 WBC RBC Hgb Hct MCV MCH MCHC RDW Plt Count MPV Neut % (Auto) Lymph % (Auto) [place] % (Auto) Eos % (Auto) Baso % (Auto) Neut # (Auto) Lymph # (Auto) [place] # (Auto) Eos # (Auto) Baso # (Auto) Neutrophils % (Manual) Band Neutrophils % Lymphocytes % (Manual) Monocytes % (Manual) Platelet Estimate Ovalocytes Sodium Potassium Chloride Carbon Dioxide Anion Gap BUN Creatinine Est GFR ( Amer) Est GFR (Non-Af Amer) POC Glucose (mg/dL) Random Glucose Calcium Total Bilirubin AST ALT Alkaline Phosphatase Total Creatine Kinase CK-MB (Mass) Troponin I Total Protein Albumin Globulin Albumin/Globulin Ratio Lipase Urine Color Yellow Urine Clarity Clear Urine pH 6.0 Ur Specific [place] 1.032 H Urine Protein Negative Urine Glucose (UA) 3+ H Urine Ketones Trace Urine Blood Negative Urine Nitrate Negative Urine Bilirubin Negative Urine Urobilinogen Normal Ur Leukocyte Esterase Neg Urine WBC (Auto) 1 Urine RBC (Auto) < 1 Ur Squamous Epith Cells 1 Urine Bacteria Rare Urine Osmolality 975 Ur Random Creatinine 67.7 Ur Random Sodium 108
[2017-07-10 07:30] LABS: EOS # 0.1 K/uL (0.0-0.7); MEAN CORPUSCULAR HEMOGLOBIN 31.5 pg (27.0-31.0); MONO # 0.5 K/uL (0.0-0.8); MONO % 8.3 % (0.0-10.0); NRBC % 0.1 % (0.0-2.0)
[2017-07-10 07:45] LABS: ALB/GLOB RATIO 1.2 (1.0-2.1); ALBUMIN 3.8 g/dL (3.5-5.0); ALT/SGPT 25 U/L (9-52); AST/SGOT 23 U/L (14-36); BLOOD UREA NITROGEN 20 mg/dL (7-17); CALCIUM 8.8 mg/dl (8.6-10.4); GFR AFRICAN-AMERICAN > 60; GFR NON-AFRICAN AMERICAN > 60
[2017-07-10 07:52] LABS: BASO % 0.5 % (0.0-2.0); EOS % 1.9 % (0.0-4.0); LYMPH # 2.1 K/uL (1.0-4.3); LYMPH % 34.3 % (20.0-40.0); MEAN CELL VOLUME 92.6 fL (81.0-99.0); MEAN PLATELET VOLUME 8.5 fL (7.2-11.7); NEUT # 3.4 K/uL (1.8-7.0); RBC 4.13 Mil/uL (3.80-5.20); RED CELL DISTRIBUTION WIDTH 13.4 % (11.5-14.5); WHITE BLOOD COUNT 6.1 K/uL (4.8-10.8)
[2017-07-10] MEDS: (Novolog) Insulin Aspart, Recombinant 100 u/ml 10 ml vial SC SCH ×4 (08:30→21:51)
[2017-07-10] MEDS: Potassium Chloride 20 mEq ER Tab PO SCH (18:13)
--- NOTE | 2017-07-10 18:17 | CP.PCM.PN ---
Subjective - Date & Time of Evaluation Date of Evaluation: 07/10/17 Time of Evaluation: 18:17 - Subjective Subjective: pt is seen and examined, follow up consult is dictated #[id number] consider to tx uti Objective - Vital Signs/Intake and Output Vital Signs (last 24 hours): Temp Pulse Resp BP Pulse Ox 98.1 F 81 18 111/71 98 07/10/17 15:39 07/10/17 15:39 07/10/17 15:39 07/10/17 15:39 07/10/17 15:39 Intake and Output: 07/10/17 07/10/17 06:59 18:59 Intake Total 70 Balance 70 - Medications Medications: Current Medications Heparin Sodium (Porcine) (Heparin) 5,000 units SC Q12 [facility] Last Admin: 07/10/17 10:36 Dose: 5,000 units Sodium Chloride (Sodium Chloride 0.45%) 1,000 mls @ 70 mls/hr IV .[id number] [facility] Last Admin: 07/09/17 20:57 Dose: 70 mls/hr Insulin Aspart (Novolog) 0 unit SC ACHS [facility] PRN Reason: Protocol Last Admin: 07/10/17 17:16 Dose: Not Given Losartan Potassium (Cozaar) 100 mg PO DAILY [facility] Last Admin: 07/10/17 10:39 Dose: 100 mg Pantoprazole Sodium (Protonix Inj) 40 mg IVP DAILY [facility] Last Admin: 07/10/17 10:33 Dose: 40 mg Potassium Chloride (K-Dur 20 Meq Er Tab) 20 meq PO BID [facility] Stop: 07/12/17 10:01 Last Admin: 07/10/17 18:13 Dose: 20 meq Rosuvastatin Calcium (Crestor) 2.5 mg PO HS [facility] Last Admin: 07/09/17 21:17 Dose: 2.5 mg - Labs Labs: 07/10/17 07:16 07/10/17 07:16
[2017-07-10] MEDS: Rosuvastatin Calcium 2.5 mg Tab PO SCH (21:12)
--- NOTE | 2017-07-11 00:08 | PN ---
DATE: 07/10/2017. REQUESTED BY: Te Lamar MD. REASON FOR FOLLOWUP: Electrolyte imbalance, prerenal azotemia and dehydration. SUBJECTIVE: Mrs. Nguyen is a 66 years old elderly very pleasant [place] female with a history of longstanding hypertension, diabetes, hyperlipidemia, arthritis and hyperthyroidism and status post cardiac cath, questionable coronary artery disease who was admitted with a chief complaint of nausea, vomiting x2, feeling dizzy, lightheaded and chest discomfort. The patient was found to have dehydration, increased BUN and creatinine and the patient was admitted for further evaluation. The patient is feeling much better today and the patient was started on IV fluids. Denies any nausea or vomiting. Denies any abdominal pain today, able to tolerate p.o. intake and solid food. No headache, no dizziness. No urinary symptoms. PHYSICAL EXAMINATION: VITAL SIGNS: As follows, blood pressure 111/71, pulse 81, respirations 18, temperature 98.1, saturation 98%. Height 5 feet 4 inches and weight is 180 pounds. GENERAL: Mrs. Nguyen is a 66 years old elderly female, moderately built, moderately nourished, not in acute distress. HEENT: Pupils normal, reactive to light and accommodation. Conjunctivae pink. Sclerae anicteric. Tongue is moist. Trachea is midline. LUNGS : Symmetric on both side. Bilateral breath sounds present. Clear on auscultation. CVS: [place] at the fifth intercostal space of intermediate midclavicular line. S1 and S2 audible. No murmur or gallop. ABDOMEN: Normal in appearance, soft, tympanic. No guarding, no rigidity. No hepatosplenomegaly. STATISTICAL MODELER: The patient is alert, awake, oriented x3. Nonfocal neuro examination. Cranial nerves II through XII grossly intact. Sensory and motor system is within normal limits. EXTREMITIES: No cyanosis, no clubbing, no edema. MEDICATIONS : Include as follows, losartan 100 mg p.o. daily, Crestor 2.5 mg at bedtime, subcu heparin 5000 q.12 hours. K-Dur 20 mEq p.o. b.i.d., NovoLog for sliding scale, Protonix 40 mg IV daily, IV fluids half-normal saline at 70 mL/hour, Tylenol 650 mg p.o. q. 6 hours. p.r.n. LABORATORY DATA: Include as follows as of 07/10/2017; WBC 6.1, hemoglobin 13, hematocrit is 38.3, platelets 292. Sodium 139, potassium 3.4, chloride 104, CO2 24, BUN 20, creatinine 0.7, glucose 117, calcium 8.8, total bili 0.6, AST 23, ALT 25, alkaline phosphatase 66, CPK 64 and troponin first one 0.012 and the second one 0.012. Stool for occult blood is negative and urine osmolality as of 07/09/2017 975, urine creatinine 67.7, urine sodium is 108. Urine culture as of 07/09/2017, positive for gram positive cocci 58,000-100,000 colony forming units. ASSESSMENT: In summary, Mrs. Nguyen is 66 years old elderly [place] female with a past medical history significant for hypertension, diabetes, hyperlipidemia, was admitted with nausea, vomiting and feeling dizzy, lightheaded and unable to tolerate p.o. with increased BUN and creatinine. 1. Prerenal azotemia secondary to dehydration and intravascular depletion. 2. Dehydration secondary to gastrointestinal loss. 3. Status post hypotension, now blood pressure is improving. 4. Hypokalemia. 5. Urinary tract infection. PLAN: Continue IV fluids. Agree with potassium supplement and followup BMP in a.m. Renal function is improving with IV hydration. Continue to monitor BMP. We will follow with you. Consider to add antibiotics for a UTI as per Dr. Lamar recommendation. Thank you for allowing me to participate in your patient's care. Gaston Zapata MD
--- NOTE | 2017-07-11 00:34 | CP.PCM.CON ---
History of Present Illness - History of Present Illness History of Present Illness: 66 F with hx of HTN, DM 2 and hyperlipidemia admitted for GI symptoms, but also c/o chest pain and with some non specific EKG changes Trop x 1 negative Stress test Wednesday Past Patient History - Past Medical History & Family History Past Medical History?: Yes - Past Social History Smoking Status: Never Smoked - CARDIAC Hx Hypercholesterolemia: Yes Hx Hypertension: Yes - PULMONARY Hx Respiratory Disorders: No - NEUROLOGICAL Hx Neurological Disorder: Yes Other/Comment: Diabetic Neuropathy - HEENT Hx HEENT Problems: No - RENAL Hx Chronic Kidney Disease: No - ENDOCRINE/METABOLIC Hx Hyperthyroidism: Yes - HEMATOLOGICAL/ONCOLOGICAL Hx Blood Disorders: No - INTEGUMENTARY Hx Dermatological Problems: No - MUSCULOSKELETAL/RHEUMATOLOGICAL Hx Arthritis: Yes - GASTROINTESTINAL Hx Gastrointestinal Disorders: Yes Hx Hemorrhoids: Yes - GENITOURINARY/GYNECOLOGICAL Hx Genitourinary Disorders: No - PSYCHIATRIC Hx Substance Use: No - SURGICAL HISTORY Hx Surgeries: Yes Hx Cardiac Catheterization: Yes Hx Dilation and Curettage: Yes - ANESTHESIA Hx Anesthesia: Yes Hx Anesthesia Reactions: No Hx Malignant Hyperthermia: No Meds Allergies/Adverse Reactions: Allergies Allergy/AdvReac Type Severity Reaction Status Date / Time No Known Allergies Allergy Verified 05/13/17 12:49 - Medications Medications: Current Medications Acetaminophen (Tylenol 325mg Tab) 650 mg PO Q6 PRN PRN Reason: Pain, moderate (4-7) Last Admin: 07/10/17 21:12 Dose: 650 mg Heparin Sodium (Porcine) (Heparin) 5,000 units SC Q12 [facility] Last Admin: 07/10/17 21:12 Dose: 5,000 units Sodium Chloride (Sodium Chloride 0.45%) 1,000 mls @ 70 mls/hr IV .[id number] [facility] Last Admin: 07/09/17 20:57 Dose: 70 mls/hr Insulin Aspart (Novolog) 0 unit SC ACHS [facility] PRN Reason: Protocol Last Admin: 07/10/17 21:51 Dose: Not Given Losartan Potassium (Cozaar) 100 mg PO DAILY [facility] Last Admin: 07/10/17 10:39 Dose: 100 mg Pantoprazole Sodium (Protonix Inj) 40 mg IVP DAILY [facility] Last Admin: 07/10/17 10:33 Dose: 40 mg Potassium Chloride (K-Dur 20 Meq Er Tab) 20 meq PO BID [facility] Stop: 07/12/17 10:01 Last Admin: 07/10/17 18:13 Dose: 20 meq Rosuvastatin Calcium (Crestor) 2.5 mg PO HS [facility] Last Admin: 07/10/17 21:12 Dose: 2.5 mg Results - Vital Signs Recent Vital Signs: Last Vital Signs Temp 98.1 F 07/10/17 15:39 Pulse 94 H 07/11/17 00:27 Resp 18 07/10/17 15:39 BP 111/71 07/10/17 15:39 Pulse Ox 98 07/10/17 15:39 - Labs Result Diagrams: 07/10/17 07:16 07/10/17 07:16 Labs: Laboratory Results - last 24 hr 07/09/17 07/10/17 07/10/17 21:47 06:39 07:16 WBC 6.1 RBC 4.13 Hgb 13.0 Hct 38.3 MCV 92.6 MCH 31.5 H MCHC 34.0 RDW 13.4 Plt Count 292 MPV 8.5 Neut % (Auto) 55.0 Lymph % (Auto) 34.3 Day % (Auto) 8.3 Eos % (Auto) 1.9 Baso % (Auto) 0.5 Neut # (Auto) 3.4 Lymph # (Auto) 2.1 Day # (Auto) 0.5 Eos # (Auto) 0.1 Baso # (Auto) 0.0 Differential Comment Sodium Potassium Chloride Carbon Dioxide Anion Gap BUN Creatinine Est GFR ( Amer) Est GFR (Non-Af Amer) POC Glucose (mg/dL) 116 H 84 Random Glucose Calcium Total Bilirubin AST ALT Alkaline Phosphatase Total Creatine Kinase CK-MB (Mass) Troponin I Total Protein Albumin Globulin Albumin/Globulin Ratio Stool Occult Blood 07/10/17 07/10/17 07/10/17 07:16 11:29 16:49 WBC RBC Hgb Hct MCV MCH MCHC RDW Plt Count MPV Neut % (Auto) Lymph % (Auto) Day % (Auto) Eos % (Auto) Baso % (Auto) Neut # (Auto) Lymph # (Auto) Day # (Auto) Eos # (Auto) Baso # (Auto) Differential Comment Sodium 139 Potassium 3.4 L Chloride 104 Carbon Dioxide 24 Anion Gap 15 BUN 20 H Creatinine 0.7 Est GFR ( Amer) > 60 Est GFR (Non-Af Amer) > 60 POC Glucose (mg/dL) 104 115 H Random Glucose 117 H Calcium 8.8 Total Bilirubin 0.6 AST 23 ALT 25 Alkaline Phosphatase 66 Total Creatine Kinase 64 CK-MB (Mass) 0.80 Troponin I < 0.0120 Total Protein 7.1 Albumin 3.8 Globulin 3.2 Albumin/Globulin Ratio 1.2 Stool Occult Blood 07/10/17 07/10/17 19:02 21:31 WBC RBC Hgb Hct MCV MCH MCHC RDW Plt Count MPV Neut % (Auto) Lymph % (Auto) Day % (Auto) Eos % (Auto) Baso % (Auto) Neut # (Auto) Lymph # (Auto) Day # (Auto) Eos # (Auto) Baso # (Auto) Differential Comment Sodium Potassium Chloride Carbon Dioxide Anion Gap BUN Creatinine Est GFR ( Amer) Est GFR (Non-Af Amer) POC Glucose (mg/dL) 101 Random Glucose Calcium Total Bilirubin AST ALT Alkaline Phosphatase Total Creatine Kinase CK-MB (Mass) Troponin I Total Protein Albumin Globulin Albumin/Globulin Ratio Stool Occult Blood Negative
--- NOTE | 2017-07-11 00:35 | CP.PCM.PN ---
Subjective - Date & Time of Evaluation Date of Evaluation: 07/10/17 Time of Evaluation: 14:20 - Subjective Subjective: Patient seen and evaluated Comfortable Cardiac enzymes x 3 negative Stress test Wednesday Objective - Vital Signs/Intake and Output Vital Signs (last 24 hours): Temp Pulse Resp BP Pulse Ox 98.1 F 94 H 18 111/71 98 07/10/17 15:39 07/11/17 00:27 07/10/17 15:39 07/10/17 15:39 07/10/17 15:39 Intake and Output: 07/10/17 07/11/17 18:59 06:59 Intake Total 70 880 Balance 70 880 - Medications Medications: Current Medications Acetaminophen (Tylenol 325mg Tab) 650 mg PO Q6 PRN PRN Reason: Pain, moderate (4-7) Last Admin: 07/10/17 21:12 Dose: 650 mg Heparin Sodium (Porcine) (Heparin) 5,000 units SC Q12 [facility] Last Admin: 07/10/17 21:12 Dose: 5,000 units Sodium Chloride (Sodium Chloride 0.45%) 1,000 mls @ 70 mls/hr IV .[id number] [facility] Last Admin: 07/09/17 20:57 Dose: 70 mls/hr Insulin Aspart (Novolog) 0 unit SC ACHS [facility] PRN Reason: Protocol Last Admin: 07/10/17 21:51 Dose: Not Given Losartan Potassium (Cozaar) 100 mg PO DAILY [facility] Last Admin: 07/10/17 10:39 Dose: 100 mg Pantoprazole Sodium (Protonix Inj) 40 mg IVP DAILY [facility] Last Admin: 07/10/17 10:33 Dose: 40 mg Potassium Chloride (K-Dur 20 Meq Er Tab) 20 meq PO BID [facility] Stop: 07/12/17 10:01 Last Admin: 07/10/17 18:13 Dose: 20 meq Rosuvastatin Calcium (Crestor) 2.5 mg PO HS [facility] Last Admin: 07/10/17 21:12 Dose: 2.5 mg - Labs Labs: 07/10/17 07:16 07/10/17 07:16
[2017-07-11] MEDS: Sodium Chloride 0.45% 1,000 ML IV SCH ×2 (05:38→05:39)
[2017-07-11] MEDS: (Novolog) Insulin Aspart, Recombinant 100 u/ml 10 ml vial SC SCH ×4 (08:13→22:00)
[2017-07-11 08:45] LABS: ALB/GLOB RATIO 1.2 (1.0-2.1); ALBUMIN 3.7 g/dL (3.5-5.0); ALT/SGPT 44 U/L (9-52); AST/SGOT 35 U/L (14-36); BLOOD UREA NITROGEN 16 mg/dL (7-17); CALCIUM 8.8 mg/dl (8.6-10.4); GFR AFRICAN-AMERICAN > 60; GFR NON-AFRICAN AMERICAN > 60
[2017-07-11] MEDS: Potassium Chloride 20 mEq ER Tab PO SCH ×2 (10:13→19:00)
--- NOTE | 2017-07-11 10:47 | CARD ---
APPROVED REPORT EXAM: Two-dimensional and M-mode echocardiogram with Doppler and color Doppler. Other Information Quality : GoodRhythm : INDICATION Abnormal EKG/Arrhythmia Chest Pain M-Mode DIMENSIONS RVDd1.21 (2.1-3.2cm)Left Atrium (MM)3.89 (2.5-4.0cm) IVSd1.03 (0.7-1.1cm)Aortic Root2.60 (2.2-3.7cm) LVDd4.71 (4.0-5.6cm)Aortic Cusp Exc.1.28 (1.5-2.0cm) PWd1.00 (0.7-1.1cm)FS (%) 32 % LVDs3.19 (2.0-3.8cm)LVEF (%)60 (>50%) Mitral Valve MV E Euwzxjuj58.2cm/sMV A Czqgzeux90.9cm/sE/A ratio1.1 TDI E/Lateral E'0.0E/Medial E'0.0 Tricuspid Valve TR Peak [id number]/sTR Peak Gr.[id number] LEFT VENTRICLE The left ventricle is normal size. There is normal left ventricular wall thickness. Left ventricle systolic function is normal. The Ejection Fraction is 60-65%. There is normal LV segmental wall motion. Transmitral Doppler flow pattern is abnormal.Grade I-abnormal relaxation pattern. There is no ventricular septal defect visualized. RIGHT VENTRICLE The right ventricle is normal size. The right ventricular systolic function is normal. ATRIA The left atrium is mildly dilated. The right atrium size is normal. AORTIC VALVE The aortic valve is mildly sclerotic. The aortic valve is tri-cuspid. No aortic regurgitation is present. There is no aortic valvular stenosis. MITRAL VALVE The mitral valve is normal in structure. There is no evidence of mitral valve prolapse. There is no mitral valve regurgitation noted. TRICUSPID VALVE The tricuspid valve is normal in structure. There is trace tricuspid regurgitation. There is no pulmonary hypertension. PULMONIC VALVE The pulmonic valve is not well visualized. There is no pulmonic valvular regurgitation. GREAT VESSELS The aortic root is normal in size. The ascending aorta is normal in size. The IVC is normal in size and collapses >50% with inspiration. PERICARDIAL EFFUSION There is no pericardial effusion. <Conclusion> Left ventricle systolic function is normal. The Ejection Fraction is 60-65%. Transmitral Doppler flow pattern is abnormal.Grade I-abnormal relaxation pattern.
--- NOTE | 2017-07-11 15:20 | CP.PCM.PN ---
Subjective - Date & Time of Evaluation Date of Evaluation: 07/10/17 Time of Evaluation: 08:00 - Subjective Subjective: enzymes neg Objective - Vital Signs/Intake and Output Vital Signs (last 24 hours): Temp Pulse Resp BP Pulse Ox 97.4 F L 85 20 115/72 95 07/11/17 08:00 07/11/17 08:00 07/11/17 08:00 07/11/17 08:00 07/11/17 08:00 Intake and Output: 07/11/17 07/11/17 06:59 18:59 Intake Total 1440 Balance 1440 - Medications Medications: Current Medications Acetaminophen (Tylenol 325mg Tab) 650 mg PO Q6 PRN PRN Reason: Pain, moderate (4-7) Last Admin: 07/10/17 21:12 Dose: 650 mg Heparin Sodium (Porcine) (Heparin) 5,000 units SC Q12 [facility] Last Admin: 07/11/17 10:10 Dose: 5,000 units Sodium Chloride (Sodium Chloride 0.45%) 1,000 mls @ 70 mls/hr IV .[id number] [facility] Last Admin: 07/11/17 05:39 Dose: Not Given Insulin Aspart (Novolog) 0 unit SC ACHS [facility] PRN Reason: Protocol Last Admin: 07/11/17 12:00 Dose: Not Given Losartan Potassium (Cozaar) 100 mg PO DAILY [facility] Last Admin: 07/11/17 10:13 Dose: 100 mg Pantoprazole Sodium (Protonix Inj) 40 mg IVP DAILY [facility] Last Admin: 07/11/17 10:06 Dose: 40 mg Potassium Chloride (K-Dur 20 Meq Er Tab) 20 meq PO BID [facility] Stop: 07/12/17 10:01 Last Admin: 07/11/17 10:13 Dose: 20 meq Rosuvastatin Calcium (Crestor) 2.5 mg PO HS [facility] Last Admin: 07/10/17 21:12 Dose: 2.5 mg - Labs Labs: 07/10/17 07:16 07/11/17 08:16 - Constitutional Appears: Non-toxic - Head Exam Head Exam: NORMOCEPHALIC - Eye Exam Eye Exam: PERRL - ENT Exam ENT Exam: Mucous Membranes Dry Assessment and Plan (1) Chest pain Status: Acute (2) Abdominal pain Status: Acute (3) Abdominal pain Status: Acute (4) Abnormal EKG Status: Acute (5) Abnormal EKG Status: Acute
--- NOTE | 2017-07-11 15:21 | CP.PCM.PN ---
Subjective - Date & Time of Evaluation Date of Evaluation: 07/11/17 Time of Evaluation: 08:00 - Subjective Subjective: awake alert NAD afeb no chest pain enzymes neg Objective - Vital Signs/Intake and Output Vital Signs (last 24 hours): Temp Pulse Resp BP Pulse Ox 97.4 F L 85 20 115/72 95 07/11/17 08:00 07/11/17 08:00 07/11/17 08:00 07/11/17 08:00 07/11/17 08:00 Intake and Output: 07/11/17 07/11/17 06:59 18:59 Intake Total 1440 Balance 1440 - Medications Medications: Current Medications Acetaminophen (Tylenol 325mg Tab) 650 mg PO Q6 PRN PRN Reason: Pain, moderate (4-7) Last Admin: 07/10/17 21:12 Dose: 650 mg Heparin Sodium (Porcine) (Heparin) 5,000 units SC Q12 [facility] Last Admin: 07/11/17 10:10 Dose: 5,000 units Sodium Chloride (Sodium Chloride 0.45%) 1,000 mls @ 70 mls/hr IV .[id number] [facility] Last Admin: 07/11/17 05:39 Dose: Not Given Insulin Aspart (Novolog) 0 unit SC ACHS [facility] PRN Reason: Protocol Last Admin: 07/11/17 12:00 Dose: Not Given Losartan Potassium (Cozaar) 100 mg PO DAILY [facility] Last Admin: 07/11/17 10:13 Dose: 100 mg Pantoprazole Sodium (Protonix Inj) 40 mg IVP DAILY [facility] Last Admin: 07/11/17 10:06 Dose: 40 mg Potassium Chloride (K-Dur 20 Meq Er Tab) 20 meq PO BID [facility] Stop: 07/12/17 10:01 Last Admin: 07/11/17 10:13 Dose: 20 meq Rosuvastatin Calcium (Crestor) 2.5 mg PO HS [facility] Last Admin: 07/10/17 21:12 Dose: 2.5 mg - Labs Labs: 07/10/17 07:16 07/11/17 08:16 - Constitutional Appears: Non-toxic, Chronically Ill - Head Exam Head Exam: NORMOCEPHALIC - Eye Exam Eye Exam: PERRL - ENT Exam ENT Exam: Mucous Membranes Dry - Neck Exam Neck Exam: absent: Lymphadenopathy - Respiratory Exam Respiratory Exam: Decreased Breath Sounds, Clear to Ausculation Bilateral - Cardiovascular Exam Cardiovascular Exam: REGULAR RHYTHM, +S1, +S2 - GI/Abdominal Exam GI & Abdominal Exam: Distended, Soft. absent: Tenderness - Rectal Exam Rectal Exam: Deferred - Exam Exam: NORMAL INSPECTION - Extremities Exam Extremities Exam: absent: Pedal Edema - Back Exam Back Exam: absent: CVA tenderness (L), CVA tenderness (R) - Neurological Exam Neurological Exam: Alert, Awake, Oriented x3 - Psychiatric Exam Psychiatric exam: Normal Mood - Skin Skin Exam: Dry Assessment and Plan (1) Chest pain Status: Acute (2) Abdominal pain Status: Acute (3) Abdominal pain Status: Acute (4) Abnormal EKG Status: Acute (5) Abnormal EKG Status: Acute - Assessment and Plan (Free Text) Assessment: await stress test/ clearance form cardio may need cardiac cath
[2017-07-11] MEDS: Amoxicillin-Clav 875-125 mg Tab PO SCH ×2 (16:00→21:46)
[2017-07-11] MEDS: Rosuvastatin Calcium 2.5 mg Tab PO SCH (21:43)
--- NOTE | 2017-07-11 22:01 | CP.PCM.PN ---
Subjective - Date & Time of Evaluation Date of Evaluation: 07/11/17 Time of Evaluation: 15:35 - Subjective Subjective: pt is seen and examined, follow up consult is dictated #[id number] Objective - Vital Signs/Intake and Output Vital Signs (last 24 hours): Temp Pulse Resp BP Pulse Ox 98.3 F 85 18 118/81 98 07/11/17 15:49 07/11/17 15:49 07/11/17 15:49 07/11/17 15:49 07/11/17 15:49 - Medications Medications: Current Medications Acetaminophen (Tylenol 325mg Tab) 650 mg PO Q6 PRN PRN Reason: Pain, moderate (4-7) Last Admin: 07/10/17 21:12 Dose: 650 mg Amoxicillin/Clavulanate Potassium (Augmentin 875 Mg-125 Mg Tab) 1 tab PO Q12 [facility] Stop: 07/14/17 15:31 Last Admin: 07/11/17 21:46 Dose: 1 tab Heparin Sodium (Porcine) (Heparin) 5,000 units SC Q12 [facility] Last Admin: 07/11/17 21:43 Dose: 5,000 units Insulin Aspart (Novolog) 0 unit SC ACHS [facility] PRN Reason: Protocol Last Admin: 07/11/17 16:30 Dose: Not Given Losartan Potassium (Cozaar) 100 mg PO DAILY [facility] Last Admin: 07/11/17 10:13 Dose: 100 mg Pantoprazole Sodium (Protonix Inj) 40 mg IVP DAILY [facility] Last Admin: 07/11/17 10:06 Dose: 40 mg Potassium Chloride (K-Dur 20 Meq Er Tab) 20 meq PO BID [facility] Stop: 07/12/17 10:01 Last Admin: 07/11/17 10:13 Dose: 20 meq Rosuvastatin Calcium (Crestor) 2.5 mg PO HS [facility] Last Admin: 07/11/17 21:43 Dose: 2.5 mg - Labs Labs: 07/10/17 07:16 07/11/17 08:16
--- NOTE | 2017-07-11 23:05 | CP.PCM.PN ---
Subjective - Date & Time of Evaluation Date of Evaluation: 07/11/17 Time of Evaluation: 15:20 - Subjective Subjective: Patient seen and evaluated Admitted for chest pain Multiple risk factors For stress test in am Objective - Vital Signs/Intake and Output Vital Signs (last 24 hours): Temp Pulse Resp BP Pulse Ox 98.3 F 85 18 118/81 98 07/11/17 15:49 07/11/17 15:49 07/11/17 15:49 07/11/17 15:49 07/11/17 15:49 - Medications Medications: Current Medications Acetaminophen (Tylenol 325mg Tab) 650 mg PO Q6 PRN PRN Reason: Pain, moderate (4-7) Last Admin: 07/10/17 21:12 Dose: 650 mg Amoxicillin/Clavulanate Potassium (Augmentin 875 Mg-125 Mg Tab) 1 tab PO Q12 [facility] Stop: 07/14/17 15:31 Last Admin: 07/11/17 21:46 Dose: 1 tab Heparin Sodium (Porcine) (Heparin) 5,000 units SC Q12 [facility] Last Admin: 07/11/17 21:43 Dose: 5,000 units Insulin Aspart (Novolog) 0 unit SC ACHS [facility] PRN Reason: Protocol Last Admin: 07/11/17 22:00 Dose: Not Given Losartan Potassium (Cozaar) 100 mg PO DAILY [facility] Last Admin: 07/11/17 10:13 Dose: 100 mg Pantoprazole Sodium (Protonix Inj) 40 mg IVP DAILY [facility] Last Admin: 07/11/17 10:06 Dose: 40 mg Potassium Chloride (K-Dur 20 Meq Er Tab) 20 meq PO BID [facility] Stop: 07/12/17 10:01 Last Admin: 07/11/17 10:13 Dose: 20 meq Rosuvastatin Calcium (Crestor) 2.5 mg PO HS [facility] Last Admin: 07/11/17 21:43 Dose: 2.5 mg - Labs Labs: 07/10/17 07:16 07/11/17 08:16
--- NOTE | 2017-07-12 07:40 | PN ---
DATE: 07/11/2017 FOLLOWUP RENAL CONSULTATION LOCATION: The patient is located in room 657, bed B. REQUESTED BY: Te Lamar MD SUBJECTIVE: Mrs. Nguyen is a 66 years old elderly, very pleasant Congolese female with a past medical history significant for longstanding hypertension, diabetes, hyperlipidemia who was admitted with nausea, vomiting, feeling dizzy, weakness, and low blood pressure. Again, the patient was found to have dehydration and increased BUN and creatinine. The patient was started on IV fluids. The patient is feeling much better. Renal function is improving. No nausea, vomiting, or diarrhea; now no abdominal pain and also found to have UTI. The patient is tolerating p.o. fluids, and diet no compliance. PHYSICAL EXAMINATION: VITAL SIGNS: As follows: Blood pressure 118/81, pulse 85, respirations 18, temperature 98.3, saturations 98%, height 5 feet 4 inches, weight is 180 pounds. GENERAL: Mrs. Nguyen is a 66 years old elderly female, moderately built, moderately nourished, not in acute distress. HEENT: Pupils normal and reactive to light and accommodation. Conjunctivae pink. Sclerae anicteric. Tongue is moist. Trachea is midline. LUNGS: Symmetric on both side. Bilateral breath sounds present. Clear on auscultation. CVS: [place] at the fifth intercostal space, midclavicular line. S1 and S2 audible. No murmur or gallop. ABDOMEN: Normal in appearance, soft, tympanic. No guarding. No rigidity. No hepatosplenomegaly. OCEAN IMPORT REPRESENTATIVE: The patient is alert, awake, oriented x3. Nonfocal neuro examination. Cranial nerves II through XII grossly intact. Sensory and motor system is within normal limits. EXTREMITIES: No cyanosis, no clubbing, no edema. CURRENT MEDICATIONS: Include as follows, losartan 100 mg p.o. daily, Crestor 2.5 mg p.o. at bedtime, subcu heparin 5000 q.12 hours, K-Dur 20 mEq p.o. b.i.d., NovoLog for sliding scale, Protonix 40 mg IV daily, Tylenol 325 mg p.o. q.6 hours. LABORATORY DATA: As of 07/11/2017: Sodium 140, potassium 3.7, chloride 106, CO2 of 26, BUN 16, creatinine 0.7, glucose 110, calcium 8.8, total bili 0.2, AST 35, ALT 44, alkaline phosphatase 67, total protein 6.7, albumin is 3.7. Accu-Cheks 97 and 119. Other laboratory data, urine culture positive for beta hemolytic strep group B, resistant to ampicillin. IMPRESSION: In summary, Mrs. Nguyen is a 66-year-old elderly female with hypertension, diabetes, hyperlipidemia, with nausea, vomiting, abdominal pain, dizziness, and low blood pressure on admission with adequate p.o. intake x1 day. 1. Gastroenteritis. Most likely secondary to food poisoning. 2. Dehydration. 3. Prerenal azotemia. Renal function, BUN-creatinine ratio on admission more than 1:40 and BUN-creatinine is almost now 1:18. We will continue to encourage p.o. intake and can discontinue IV fluids and keep the Hep-Lock. We will follow with you. Thank you for allowing me to participate in your patient's care and will also add Augmentin 875 mg p.o. b.i.d. Gaston Zapata MD
[2017-07-12] MEDS: (Novolog) Insulin Aspart, Recombinant 100 u/ml 10 ml vial SC SCH ×4 (07:50→22:17)
[2017-07-12] MEDS ORDERED: Aminophylline 25 mg/ml Inj ONE (08:16)
[2017-07-12] MEDS: Potassium Chloride 20 mEq ER Tab PO SCH (10:35)
[2017-07-12] MEDS: Amoxicillin-Clav 875-125 mg Tab PO SCH ×2 (12:41→21:36)
--- NOTE | 2017-07-12 12:54 | CP.PCM.PN ---
Subjective - Date & Time of Evaluation Date of Evaluation: 07/12/17 Time of Evaluation: 08:00 - Subjective Subjective: had + stress test awake alert NAD for Cath in am Objective - Vital Signs/Intake and Output Vital Signs (last 24 hours): Temp Pulse Resp BP Pulse Ox 98.1 F 87 20 152/99 H 96 07/12/17 07:15 07/12/17 07:15 07/12/17 07:15 07/12/17 07:15 07/12/17 07:15 Intake and Output: 07/12/17 07/12/17 06:59 18:59 Intake Total 0 Balance 0 - Medications Medications: Current Medications Acetaminophen (Tylenol 325mg Tab) 650 mg PO Q6 PRN PRN Reason: Pain, moderate (4-7) Last Admin: 07/10/17 21:12 Dose: 650 mg Amoxicillin/Clavulanate Potassium (Augmentin 875 Mg-125 Mg Tab) 1 tab PO Q12 [facility] Stop: 07/14/17 15:31 Last Admin: 07/12/17 12:41 Dose: 1 tab Heparin Sodium (Porcine) (Heparin) 5,000 units SC Q12 [facility] Last Admin: 07/12/17 10:36 Dose: 5,000 units Insulin Aspart (Novolog) 0 unit SC ACHS [facility] PRN Reason: Protocol Last Admin: 07/12/17 11:30 Dose: Not Given Losartan Potassium (Cozaar) 100 mg PO DAILY [facility] Last Admin: 07/12/17 10:35 Dose: 100 mg Pantoprazole Sodium (Protonix Inj) 40 mg IVP DAILY [facility] Last Admin: 07/12/17 10:35 Dose: 40 mg Rosuvastatin Calcium (Crestor) 2.5 mg PO HS [facility] Last Admin: 07/11/17 21:43 Dose: 2.5 mg - Labs Labs: 07/10/17 07:16 07/11/17 08:16 - Constitutional Appears: Non-toxic, Chronically Ill - Head Exam Head Exam: NORMOCEPHALIC - Eye Exam Eye Exam: PERRL - ENT Exam ENT Exam: Mucous Membranes Dry - Neck Exam Neck Exam: absent: Lymphadenopathy - Respiratory Exam Respiratory Exam: Decreased Breath Sounds - Cardiovascular Exam Cardiovascular Exam: REGULAR RHYTHM - GI/Abdominal Exam GI & Abdominal Exam: Distended, Soft - Rectal Exam Rectal Exam: Deferred - Exam Exam: NORMAL INSPECTION - Extremities Exam Extremities Exam: absent: Pedal Edema - Back Exam Back Exam: absent: CVA tenderness (L), CVA tenderness (R) Assessment and Plan (1) Chest pain Status: Acute (2) Abdominal pain Status: Acute (3) Abdominal pain Status: Acute (4) Abnormal EKG Status: Acute (5) Abnormal EKG Status: Acute - Assessment and Plan (Free Text) Assessment: for cardiac cath in am cont present rx
--- NOTE | 2017-07-12 13:40 | CP.PCM.PN ---
Subjective - Date & Time of Evaluation Date of Evaluation: 07/12/17 Time of Evaluation: 13:38 - Subjective Subjective: pt is seen and examined, follow up consult is dictated #[id number] for cath in am start ivf ns at 70 ml/hr mucomyst 600 mg po bid Objective - Vital Signs/Intake and Output Vital Signs (last 24 hours): Temp Pulse Resp BP Pulse Ox 98.1 F 87 20 152/99 H 96 07/12/17 07:15 07/12/17 07:15 07/12/17 07:15 07/12/17 07:15 07/12/17 07:15 Intake and Output: 07/12/17 07/12/17 06:59 18:59 Intake Total 0 Balance 0 - Medications Medications: Current Medications Acetaminophen (Tylenol 325mg Tab) 650 mg PO Q6 PRN PRN Reason: Pain, moderate (4-7) Last Admin: 07/10/17 21:12 Dose: 650 mg Amoxicillin/Clavulanate Potassium (Augmentin 875 Mg-125 Mg Tab) 1 tab PO Q12 [facility] Stop: 07/14/17 15:31 Last Admin: 07/12/17 12:41 Dose: 1 tab Heparin Sodium (Porcine) (Heparin) 5,000 units SC Q12 [facility] Last Admin: 07/12/17 10:36 Dose: 5,000 units Insulin Aspart (Novolog) 0 unit SC ACHS [facility] PRN Reason: Protocol Last Admin: 07/12/17 11:30 Dose: Not Given Losartan Potassium (Cozaar) 100 mg PO DAILY [facility] Last Admin: 07/12/17 10:35 Dose: 100 mg Pantoprazole Sodium (Protonix Inj) 40 mg IVP DAILY [facility] Last Admin: 07/12/17 10:35 Dose: 40 mg Rosuvastatin Calcium (Crestor) 2.5 mg PO HS [facility] Last Admin: 07/11/17 21:43 Dose: 2.5 mg - Labs Labs: 07/10/17 07:16 07/11/17 08:16
[2017-07-12] MEDS: Rosuvastatin Calcium 2.5 mg Tab PO SCH (21:36)
--- NOTE | 2017-07-12 22:22 | CARD ---
APPROVED REPORT EKG Measurement Heart [id number] 160P [id number] <Conclusion> Normal sinus rhythm Poor R wave progression. Baseline artifact. Abnormal ECG
--- NOTE | 2017-07-13 00:44 | CARD ---
APPROVED REPORT Protocol: LEXISCAN Test Type: LEXISCAN STRESS Test Indications: CHEST PAIN Target HR: 154 bpm Resting ECG: normal Resting Heart Rate: 85 bpm Resting Blood Pressure: 132/80mmHg submaximum (85%): 131 bpm TEST SUMMARY [id number]/80.0. INFUSIONDOSE 100:300.00.01.090/.0. [id number]/80.0. PROCEDURE Pharmacologic stress testing was performed using 0.4mg per 5ml of regadenoson given intravenously over 7-10 seconds. Reversal agent aminophyline 100 mg, given intravenously for Headache. POST EXERCISE Reason for Termination: Protocol Completed Target HR: No Max HR: 90 bpm 75% of Maximum Predicted HR: 154 bpm Exercise duration: 00:30 min:sec, 0 Stage Exercise capacity: 1.0METs Max Blood Pressure: 132/80mmHg Blood Pressure response to exercise: normal resting BP - appropriate response Heart Rate response to exercise: appropriate Chest Pain: No, none Angina index: 0 Arrhythmia: No, none ST Change: Yes, 1 MM Deviation: 0 mm INTERPRETATION Stress EKG Conclusion: POSITIVE LEXISCAN STRESS TEST NORMAL BP RESPONSE TO LEXISCAN NUCLEAR STUDIES TO BE READ SEPARATELY EXAM: Myocardial Perfusion STRESS/REST Imaging Protocol The imaging protocol used to acquire images was Stress Tc-99m/rest Tc-99m 1 day Stress Spect myocardial perfusion imaging was performed in supine position 41 minutes following the injection of 13.2 mCi of Tc-99 Myoview. Gated Rest Spect was performed 40 minutes after intravenous 33 mCi Tc-99 Myoview injection. The images were gated to evaluate regional wall motion and calculate ventricular ejection fraction.Images were reconstructed using backfilter projection method in short horizontal and verticle long axis. Spect slices were generated. RESTING DATA EDV51.02udIU4.70L/min ESV10.00mlMyocardial Mass93.00g Av. Heart Rate89.00bpm EF80.00% STRESS DATA EDV62.75kbJX5.90L/min ESV7.00mlMyocardial Vpuv057.00g EF89.00% Regional WT score at stress:2.00 Regional WM score at stress:0.00 Summed WT score at stress:20.00 Av. Heart Rate89.00bpmSummed WM score at stress:0.00 LV Perf. Quant 17 Seg. SSS2.00 17 Seg. SRS0.00 17 Seg. SDS2.00 Stress Defect Extent (% LAD)0.00Rest Defect Extent (% LAD)0.00Rev. Defect Extent (% LAD)0.00 Stress Defect Extent (% LCX)15.00Rest Defect Extent (% LCX)0.00Rev. Defect Extent (% LCX)13.80 Stress Defect Extent (% RCA)0.00Rest Defect Extent (% RCA)0.00Rev. Defect Extent (% RCA)0.00 Stress Defect Extent (% MARY)2.60Rest Defect Extent (% MARY)0.00Rev. Defect Extent (% MARY)2.40 IMPRESSION Normal Myocardial Perfusion exercise stress study Left Ventricle LV Size/Shape: The left ventricle is normal size. LV Function:Left ventricle systolic function is normal. The Ejection Fraction is >70%. Regional Wall Motion:There is normal left ventricular wall motion. Metabolism/Perfusion Defects: There is no scan evidence of reversible ischemia noted. Conclusion 1. There is no scan evidence of reversible ischemia noted. 2. Left ventricle systolic function is normal. 3. The Ejection Fraction is >70%.
[2017-07-13] MEDS: Sodium Chloride 0.9% 1,000 ML IV SCH ×2 (02:06→22:06)
[2017-07-13] MEDS: Acetylcysteine 20% Inhal Soln (4ml) PO SCH ×2 (02:08→12:30)
--- NOTE | 2017-07-13 07:08 | PN ---
DATE: FOLLOWUP RENAL CONSULTATION LOCATION: The patient is located in room 657, bed B. REQUESTED BY: Te Lamar MD REASON FOR FOLLOWUP: Dehydration, recurrent chest pain, nausea, and vomiting. HISTORY OF PRESENT ILLNESS: Mrs. Nguyen is a 66 years old elderly Indian female with a history of longstanding hypertension, diabetes, hyperlipidemia who was admitted initially with chief complaints of nausea, vomiting and feeling weak and dizzy, and chest discomfort, and also increase in BUN and creatinine ratio. The patient was found to be dehydrated, started on IV fluids. The patient is feeling much better, not in acute distress. The patient underwent stress test, and the patient is scheduled for cardiac cath tomorrow. No chest pain. No palpitation. PHYSICAL EXAMINATION: VITAL SIGNS: As follows: Blood pressure this morning 152/99, pulse 87, respirations 20, temperature 98.1, saturation 96%. Height 5 feet 4 inches and weight is 180 pounds. GENERAL: Mrs. Nguyen is a 66 years old elderly female, moderately built, moderate nourished, not in distress. HEENT: Pupils normal and reactive to light and accommodation. Conjunctiva pink. Sclerae anicteric. Tongue is moist. Trachea is midline. LUNGS: Symmetric on both sides. Bilateral breath sounds present. Clear on auscultation. CVS: [employer] at the fifth intercostal space, midclavicular line. S1, S2 audible. No murmur, gallop. ABDOMEN: Normal in appearance, soft, tympanic. No guarding. No rigidity. No hepatosplenomegaly. DISTRIBUTION SALES REPRESENTATIVE: The patient is alert, awake, and oriented x3. Nonfocal neuro examination. Cranial nerves II through XII grossly intact. Sensory and motor system is within normal limits. EXTREMITIES: No cyanosis, no clubbing, no edema. MEDICATIONS: Current medications include as follows: Augmentin 875 mg 1 tablet p.o. q.12 hours, losartan 100 mg p.o. daily, Crestor 2.5 mg daily, subcu heparin 5000 q.12 hours, NovoLog insulin per sliding scale, Protonix 40 mg IV daily, and Tylenol 650 mg p.o. q.6 hours p.r.n. LABORATORY DATA: Her laboratory data include stool for occult blood is negative and Accu-Cheks 96 and 158. IMPRESSION: In summary, again, Mrs. Nguyen is a 66 years old elderly female, with hypertension, diabetes, hyperlipidemia, was admitted with nausea, vomiting, abdominal pain after eating outside food and also dizziness and low blood pressure and increased BUN and creatinine and chest discomfort. The patient underwent a myocardial perfusion scan today, and the patient is scheduled for cardiac cath tomorrow as per Dr. Eden. 1. Status post prerenal azotemia. 2. Dehydration, improved. 3. Nausea, vomiting, improved most likely secondary to food poisoning. 4. Rule out cardiac disease. The patient is scheduled for cardiac cath in a.m. so we will start IV fluids normal saline at 80 mL/hour and also Mucomyst 600 mg p.o. b.i.d. We will follow with you. Thank you for allowing me to participate in your patient's care Gaston Zapata MD
[2017-07-13] MEDS: (Novolog) Insulin Aspart, Recombinant 100 u/ml 10 ml vial SC SCH ×4 (07:22→22:00)
[2017-07-13 07:53] LABS: PROTHROMBIN TIME 10.9 SECONDS (9.7-12.2)
[2017-07-13] MEDS ORDERED: Midazolam 2 MG/2 ML VIAL ONE (08:10)
[2017-07-13] MEDS ORDERED: Lidocaine 2% Inj (20ml) ONE (08:50)
[2017-07-13] MEDS: Amoxicillin-Clav 875-125 mg Tab PO SCH ×2 (10:00→21:59)
--- NOTE | 2017-07-13 10:23 | CON ---
DATE: 07/09/2017 RENAL CONSULTATION LOCATION: The patient is located in room 658, bed B. REQUESTED BY: Te Lamar MD REASON FOR FOLLOWUP: Increased BUN and creatinine ratio and nausea and vomiting for further evaluation. HISTORY OF PRESENT ILLNESS: Ms. Nguyen is a 66-year-old very pleasant [place] female with past medical history significant for hypertension, diabetes since 1994, hyperlipidemia, and coronary artery disease status post cardiac cath in 2003, who was admitted with chief complaint of severe abdominal pain associated with nausea and vomiting 10 times yesterday and also dizziness. As per the patient, she had outside food yesterday with chicken legs and pizza and noodles and subsequently after three hours, she started having abdominal pain associated with nausea and vomiting and also slight midsternal discomfort on and off in severity 11/30 and sometimes pain radiated to back and also on the right side of the chest and pain relieved slightly with morphine. The patient also complained of tingling and numbness of the fingers and also perioral area and numbness on the face yesterday. Denies any dysuria or frequency. Denies any diarrhea. Denies any bleeding per rectum. Denies any skin rash. Denies any dysuria or frequency. PAST MEDICAL HISTORY: Significant for hypertension, diabetes since 1994, hyperlipidemia, and coronary artery disease status post cardiac cath in 2003. PAST SURGICAL HISTORY: D&C in 1994 and 1996. ALLERGIES: NO KNOWN DRUG ALLERGIES. SOCIAL HISTORY: Denies any smoking, alcohol or drugs. PERSONAL HISTORY: She is and she has two children and also, she has three brothers and one sister. FAMILY HISTORY: Not significant except her son is suffering with acute SC who is in [facility]. REVIEW OF THE SYSTEMS: Significant for nausea, vomiting, diarrhea, chest pain, and abdominal pain. All other review of systems are reviewed and negative. CURRENT MEDICATIONS: Include as follows; losartan 100 mg p.o. daily, Crestor 2.5 mg p.o. at bedtime , heparin 5000 units subcu q.12 hours, hydrochlorothiazide 12.5 mg p.o. daily, Novolog for sliding scale and Protonix 40 mg IV daily, and IV fluids with normal saline at 70 mL/hour. PHYSICAL EXAMINATION: VITAL SIGNS: As follows, blood pressure 113/72, pulse 88, respirations 18, temperature 98.5, and saturations 98%. Height 5 feet 4 inches and weight is 180 pounds. Blood pressure on admission is 107/70. GENERAL: Ms. Nguyen is a 66-year-old elderly female, moderately-built, moderately-nourished, not in acute distress. HEENT: Pupils normal, reactive to light and accommodation. Conjunctivae pink. Sclerae anicteric. Tongue is moist. Trachea is midline. LUNGS: Symmetric on both sides. Bilateral breath sounds present. Clear on auscultation. CARDIOVASCULAR: [place] at the fifth intercostal space, midclavicular line. S1 and S2 audible. No murmur or gallop. ABDOMEN: Normal in appearance, soft, tympanic. No guarding. No rigidity. No hepatosplenomegaly. CENTRAL NERVOUS SYSTEM: The patient is alert, awake, and oriented x3. Nonfocal neuro examination. Cranial nerves II through XII grossly intact. Sensory and motor system is within normal limits. EXTREMITIES: No cyanosis, no clubbing, no edema. LABORATORY DATA: Include as follows: As of 07/09/2017, WBC 8.8, hemoglobin 13.5, hematocrit 39.5, and platelets 357, and neutrophils 86, bands 5, lymphs 5, and monocytes 4. Sodium 142, potassium is 4, chloride 103, CO2 27, BUN 35, creatinine 0.8, glucose 117, and calcium 9.3. Total bili 0.6, AST 24, ALT 31, alkaline phosphatase 64, CPK 73 and CK-MB 1.15. Troponin 0.012. Total protein 7.5 and albumin is 4.1. Urinalysis, yellow clear, pH 6.0 and specific gravity 1.032. Urine protein is negative. Urine glucose 3+ ketones trace and blood negative, nitrites positive, bilirubin negative, urobilinogen normal, leukocyte esterase negative, WBC 1, RBC less than 1, squamous epithelial 1, and bacteria rare. Urine osmolality is 975, urine creatinine is 67.7, and urine sodium is 108. ASSESSMENT: In summary, Ms. Nguyen is a 66-year-old elderly female with a history of hypertension, diabetes, and coronary artery disease with nausea, vomiting, abdominal pain, dizziness, and chest discomfort with increased BUN and creatinine ratio. 1. Vomiting and abdominal pain rule out food poisoning, rule out viral gastroenteritis. 2. Elevated BUN and creatinine, most likely prerenal azotemia. 3. Dehydration, secondary to vomiting. PLAN: We will start IV fluids and half normal saline at 70 mL/hour. Urine lytes and osmolality was requested, which was done. We will hold hydrochlorothiazide at this time and repeat in a.m. We will follow with you. Rule out ACS and continue troponin q.8 hours. Thank you for allowing me to participate in your patient's care. Gaston Zapata MD
--- NOTE | 2017-07-13 10:41 | CP.PCM.PN ---
Subjective - Date & Time of Evaluation Date of Evaluation: 07/13/17 Time of Evaluation: 08:00 - Subjective Subjective: going for cath NAD Objective - Vital Signs/Intake and Output Vital Signs (last 24 hours): Temp Pulse Resp BP Pulse Ox 98.0 F 84 20 130/72 100 07/12/17 23:30 07/13/17 07:05 07/12/17 23:30 07/12/17 23:30 07/12/17 23:30 - Medications Medications: Current Medications Acetaminophen (Tylenol 325mg Tab) 650 mg PO Q6 PRN PRN Reason: Pain, moderate (4-7) Last Admin: 07/10/17 21:12 Dose: 650 mg Acetylcysteine (Acetylcysteine 20%) 3 ml PO Q12H [facility] Last Admin: 07/13/17 02:08 Dose: Not Given Amoxicillin/Clavulanate Potassium (Augmentin 875 Mg-125 Mg Tab) 1 tab PO Q12 [facility] Stop: 07/14/17 15:31 Last Admin: 07/12/17 21:36 Dose: 1 tab Heparin Sodium (Porcine) (Heparin) 5,000 units SC Q12 [facility] Last Admin: 07/12/17 21:45 Dose: 5,000 units Sodium Chloride (Sodium Chloride 0.9%) 1,000 mls @ 80 mls/hr IV .[id number] [facility] Last Admin: 07/13/17 02:06 Dose: 80 mls/hr Insulin Aspart (Novolog) 0 unit SC ACHS [facility] PRN Reason: Protocol Last Admin: 07/13/17 07:22 Dose: Not Given Losartan Potassium (Cozaar) 100 mg PO DAILY [facility] Last Admin: 07/12/17 10:35 Dose: 100 mg Pantoprazole Sodium (Protonix Inj) 40 mg IVP DAILY [facility] Last Admin: 07/12/17 10:35 Dose: 40 mg Rosuvastatin Calcium (Crestor) 2.5 mg PO HS [facility] Last Admin: 07/12/17 21:36 Dose: 2.5 mg - Labs Labs: 07/10/17 07:16 07/11/17 08:16 PT 10.9 SECONDS (9.7-12.2) 07/13/17 07:42 INR 1.0 07/13/17 07:42 APTT 36 SECONDS (21-34) H 07/13/17 07:42 - Constitutional Appears: Non-toxic, Chronically Ill - Head Exam Head Exam: NORMOCEPHALIC - Eye Exam Eye Exam: PERRL - ENT Exam ENT Exam: Mucous Membranes Dry - Neck Exam Neck Exam: absent: Lymphadenopathy - Respiratory Exam Respiratory Exam: Decreased Breath Sounds - Cardiovascular Exam Cardiovascular Exam: REGULAR RHYTHM - GI/Abdominal Exam GI & Abdominal Exam: Distended Assessment and Plan (1) Chest pain Status: Acute (2) Abdominal pain Status: Acute (3) Abdominal pain Status: Acute (4) Abnormal EKG Status: Acute (5) Abnormal EKG Status: Acute - Assessment and Plan (Free Text) Assessment: for cath
--- NOTE | 2017-07-13 12:20 | CP.PCM.PN ---
Subjective - Date & Time of Evaluation Date of Evaluation: 07/13/17 Time of Evaluation: 12:19 - Subjective Subjective: pt is seen and examined, follow up consult is dictated #[phone] s/p cardiac cath c/w ivf ns at 70-80 ml/hr for today Objective - Vital Signs/Intake and Output Vital Signs (last 24 hours): Temp Pulse Resp BP Pulse Ox 98.0 F 84 20 130/72 100 07/12/17 23:30 07/13/17 07:05 07/12/17 23:30 07/12/17 23:30 07/12/17 23:30 - Medications Medications: Current Medications Acetaminophen (Tylenol 325mg Tab) 650 mg PO Q6 PRN PRN Reason: Pain, moderate (4-7) Last Admin: 07/10/17 21:12 Dose: 650 mg Acetylcysteine (Acetylcysteine 20%) 3 ml PO Q12H [facility] Last Admin: 07/13/17 02:08 Dose: Not Given Amoxicillin/Clavulanate Potassium (Augmentin 875 Mg-125 Mg Tab) 1 tab PO Q12 [facility] Stop: 07/14/17 15:31 Last Admin: 07/13/17 10:00 Dose: Not Given Heparin Sodium (Porcine) (Heparin) 5,000 units SC Q12 [facility] Last Admin: 07/13/17 10:00 Dose: Not Given Sodium Chloride (Sodium Chloride 0.9%) 1,000 mls @ 80 mls/hr IV .[id number] [facility] Last Admin: 07/13/17 02:06 Dose: 80 mls/hr Insulin Aspart (Novolog) 0 unit SC ACHS [facility] PRN Reason: Protocol Last Admin: 07/13/17 07:22 Dose: Not Given Losartan Potassium (Cozaar) 100 mg PO DAILY [facility] Last Admin: 07/13/17 11:14 Dose: 100 mg Pantoprazole Sodium (Protonix Inj) 40 mg IVP DAILY [facility] Last Admin: 07/13/17 11:15 Dose: 40 mg Rosuvastatin Calcium (Crestor) 2.5 mg PO HS [facility] Last Admin: 07/12/17 21:36 Dose: 2.5 mg - Labs Labs: 07/10/17 07:16 07/11/17 08:16 PT 10.9 SECONDS (9.7-12.2) 07/13/17 07:42 INR 1.0 07/13/17 07:42 APTT 36 SECONDS (21-34) H 07/13/17 07:42
--- NOTE | 2017-07-13 19:22 | CP.PCM.PN ---
Subjective - Date & Time of Evaluation Date of Evaluation: 07/13/17 Time of Evaluation: 09:00 - Subjective Subjective: PROCEDURE NOTE Proc: [facility] Coronary arteriogram LVgram Preliminary findings CORONARY ANGIOGRAM LM nL LAD 60% prox LAD lesion LCx nL RCA nL; right dominant circulation LEFT VENTRICULOGRAM LVgram - EF 55% no gradient across the aortic valve IMPRESSION : Single vessel disease NL LV systolic function PLAN: IVUS of the proximal LAD Antenna Design Engineer: Frederick Eden MD Objective - Vital Signs/Intake and Output Vital Signs (last 24 hours): Temp Pulse Resp BP Pulse Ox 98 F 92 H 18 127/81 98 07/13/17 15:35 07/13/17 15:35 07/13/17 15:35 07/13/17 15:35 07/13/17 15:35 Intake and Output: 07/13/17 07/13/17 06:59 18:59 Intake Total 750 Balance 750 - Medications Medications: Current Medications Acetaminophen (Tylenol 325mg Tab) 650 mg PO Q6 PRN PRN Reason: Pain, moderate (4-7) Last Admin: 07/10/17 21:12 Dose: 650 mg Acetylcysteine (Acetylcysteine 20%) 3 ml PO Q12H [facility] Last Admin: 07/13/17 12:30 Dose: Not Given Amoxicillin/Clavulanate Potassium (Augmentin 875 Mg-125 Mg Tab) 1 tab PO Q12 [facility] Stop: 07/14/17 15:31 Last Admin: 07/13/17 10:00 Dose: Not Given Heparin Sodium (Porcine) (Heparin) 5,000 units SC Q12 [facility] Last Admin: 07/13/17 10:00 Dose: Not Given Sodium Chloride (Sodium Chloride 0.9%) 1,000 mls @ 80 mls/hr IV .[id number] [facility] Last Admin: 07/13/17 02:06 Dose: 80 mls/hr Insulin Aspart (Novolog) 0 unit SC ACHS [facility] PRN Reason: Protocol Last Admin: 07/13/17 16:30 Dose: Not Given Losartan Potassium (Cozaar) 100 mg PO DAILY [facility] Last Admin: 07/13/17 11:14 Dose: 100 mg Pantoprazole Sodium (Protonix Inj) 40 mg IVP DAILY [facility] Last Admin: 07/13/17 11:15 Dose: 40 mg Rosuvastatin Calcium (Crestor) 2.5 mg PO HS [facility] Last Admin: 07/12/17 21:36 Dose: 2.5 mg - Labs Labs: 07/10/17 07:16 07/11/17 08:16 PT 10.9 SECONDS (9.7-12.2) 07/13/17 07:42 INR 1.0 07/13/17 07:42 APTT 36 SECONDS (21-34) H 07/13/17 07:42
--- NOTE | 2017-07-13 19:26 | CP.PCM.PN ---
Subjective - Date & Time of Evaluation Date of Evaluation: 07/12/17 Time of Evaluation: 20:00 - Subjective Subjective: Pt still with on and off atypical/typical chest pain Recent Lexiscan stress test: Positive for ischemia No scan evidence of ischemia on nuclear studies Objective - Vital Signs/Intake and Output Vital Signs (last 24 hours): Temp Pulse Resp BP Pulse Ox 98 F 92 H 18 127/81 98 07/13/17 15:35 07/13/17 15:35 07/13/17 15:35 07/13/17 15:35 07/13/17 15:35 Intake and Output: 07/13/17 07/14/17 18:59 06:59 Intake Total 750 Balance 750 - Medications Medications: Current Medications Acetaminophen (Tylenol 325mg Tab) 650 mg PO Q6 PRN PRN Reason: Pain, moderate (4-7) Last Admin: 07/10/17 21:12 Dose: 650 mg Acetylcysteine (Acetylcysteine 20%) 3 ml PO Q12H [facility] Last Admin: 07/13/17 12:30 Dose: Not Given Amoxicillin/Clavulanate Potassium (Augmentin 875 Mg-125 Mg Tab) 1 tab PO Q12 [facility] Stop: 07/14/17 15:31 Last Admin: 07/13/17 10:00 Dose: Not Given Heparin Sodium (Porcine) (Heparin) 5,000 units SC Q12 [facility] Last Admin: 07/13/17 10:00 Dose: Not Given Sodium Chloride (Sodium Chloride 0.9%) 1,000 mls @ 80 mls/hr IV .[id number] [facility] Last Admin: 07/13/17 02:06 Dose: 80 mls/hr Insulin Aspart (Novolog) 0 unit SC ACHS [facility] PRN Reason: Protocol Last Admin: 07/13/17 16:30 Dose: Not Given Losartan Potassium (Cozaar) 100 mg PO DAILY [facility] Last Admin: 07/13/17 11:14 Dose: 100 mg Pantoprazole Sodium (Protonix Inj) 40 mg IVP DAILY [facility] Last Admin: 07/13/17 11:15 Dose: 40 mg Rosuvastatin Calcium (Crestor) 2.5 mg PO HS [facility] Last Admin: 07/12/17 21:36 Dose: 2.5 mg - Labs Labs: 07/10/17 07:16 07/11/17 08:16 PT 10.9 SECONDS (9.7-12.2) 07/13/17 07:42 INR 1.0 07/13/17 07:42 APTT 36 SECONDS (21-34) H 07/13/17 07:42 - Constitutional Appears: Non-toxic - Head Exam Head Exam: NORMAL INSPECTION - Eye Exam Eye Exam: absent: Scleral icterus - ENT Exam ENT Exam: Mucous Membranes Moist - Neck Exam Neck Exam: Full ROM - Respiratory Exam Respiratory Exam: Decreased Breath Sounds - Cardiovascular Exam Cardiovascular Exam: REGULAR RHYTHM - GI/Abdominal Exam GI & Abdominal Exam: Soft. absent: Tenderness - Extremities Exam Extremities Exam: absent: Pedal Edema Assessment and Plan - Assessment and Plan (Free Text) Assessment: ACS T2dm Lipid disorder HTN Plan: In view of persistent chest pain and multiple cardiac risk factor, pt will benefit from cardiac cath.
[2017-07-13] MEDS: Rosuvastatin Calcium 2.5 mg Tab PO SCH (21:59)
--- NOTE | 2017-07-14 06:58 | PN ---
DATE: 07/13/2017 FOLLOWUP RENAL CONSULTATION LOCATION: The patient is located in room 657, Bed B. REQUESTED BY: Te Lamar MD REASON FOR FOLLOWUP: Scheduled for cardiac cath and also for recent dehydration and prerenal azotemia. HISTORY OF PRESENT ILLNESS: Mrs. Nguyen is a 66 years old elderly female with a history of longstanding hypertension, diabetes, hyperlipidemia who was admitted with chief complaints of nausea, vomiting, and abdominal pain, and initially, the patient was found to have hypotension, dehydration, and chest discomfort. Initially, treated with IV fluids and with improvement of the renal function, the patient was scheduled for cardiac cath today, started on IV fluids and Mucomyst. The patient denies any chest pain or palpitation today. Denies any nausea, vomiting, diarrhea. PHYSICAL EXAMINATION: VITAL SIGNS: Blood pressure 127/81, pulse 92, respirations 18, temperature 98, saturation 98%. Height 5 feet 4 inches, weight is 180 pounds. GENERAL: Mrs. Nguyen is a 66 years elderly female, moderately built, moderate nourished, not in distress. HEENT: Pupils normal and reactive to light and accommodation. Conjunctivae pink. Sclerae anicteric. Tongue is moist. Trachea is midline. LUNGS: Symmetric on both sides. Bilateral breath sounds present. Clear on auscultation. CVS: [place] at the fifth intercostal space, midclavicular line. S1, S2 audible. No murmur or gallop. ABDOMEN: Normal in appearance, soft, tympanic. No guarding. No rigidity. No hepatosplenomegaly. PLUMBING DRAFTER: The patient is alert, awake and oriented x3. Nonfocal neuro examination. Cranial nerves II through XII grossly intact. Sensory and motor system is within normal limits. EXTREMITIES: No cyanosis, no clubbing, no edema. MEDICATIONS: Current medications include as follows: Mucomyst 20% 3 mL p.o. q.12 hours, Augmentin 875 mg p.o. q.12 hours, Cozaar 100 mg p.o. daily, Crestor 2.5 mg at bedtime, subcu heparin 5000 q.12 hours, NovoLog for sliding scale, Protonix 40 mg IV daily, and IV fluids normal saline 80 mL/hour, and Tylenol 650 mg p.o. q.6 hours p.r.n. Cardiac cath report, procedure left heart catheterization, coronary arteriogram, left ventriculogram. Preliminary findings: Left main is normal, LAD 60% proximal LAD lesion, left circumflex normal, RCA normal, right dominant circulation. Left ventriculogram, ejection fraction is 55%. No gradient across aortic valve. Impression, single-vessel disease, normal left ventricular systolic function. IMPRESSION: In summary again, Mrs. Nguyen is a 66 years old elderly female with history of hypertension, diabetes, hyperlipidemia, was admitted with decreased p.o. intake for 1 to 2 days, nausea, vomiting, abdominal pain, and chest discomfort and increased BUN and creatinine and dehydration. 1. Status post dehydration secondary to gastroenteritis, most likely food poisoning. 2. Prerenal azotemia. Renal function improved. 3. Hypertension. 4. Diabetes. 5. Status post cardiac cath this morning with single-vessel disease. PLAN: We will DC Mucomyst and continue IV fluids until tomorrow morning and then DC IV fluids. Repeat BMP in a.m. We will follow with you. Thank you for allowing me to participate in your patient's care. Gaston Zapata MD
[2017-07-14 07:46] VITALS: RESP 18; O2SAT 97
[2017-07-14 07:51] LABS: BLOOD UREA NITROGEN 16 mg/dL (7-17); CALCIUM 8.8 mg/dl (8.6-10.4); GFR AFRICAN-AMERICAN > 60; GFR NON-AFRICAN AMERICAN > 60
[2017-07-14] MEDS: (Novolog) Insulin Aspart, Recombinant 100 u/ml 10 ml vial SC SCH ×2 (08:02→16:40)
[2017-07-14] MEDS: Amoxicillin-Clav 875-125 mg Tab PO SCH (09:28)
[2017-07-14 16:06] VITALS: BP 114/76; TEMP 97.8
[2017-07-14 16:40] VITALS: PULSE 93
--- NOTE | 2017-07-14 17:21 | CP.PCM.PN ---
Subjective - Date & Time of Evaluation Date of Evaluation: 07/14/17 Time of Evaluation: 07:45 - Subjective Subjective: no late complication from cardiac cath no chest pain at time seen Objective - Vital Signs/Intake and Output Vital Signs (last 24 hours): Temp Pulse Resp BP Pulse Ox 97.8 F 93 H 18 114/76 97 07/14/17 15:50 07/14/17 16:00 07/14/17 15:50 07/14/17 15:50 07/14/17 15:50 Intake and Output: 07/14/17 07/14/17 06:59 18:59 Intake Total 940 700 Balance 940 700 - Medications Medications: Current Medications Acetaminophen (Tylenol 325mg Tab) 650 mg PO Q6 PRN PRN Reason: Pain, moderate (4-7) Last Admin: 07/14/17 09:26 Dose: 650 mg Heparin Sodium (Porcine) (Heparin) 5,000 units SC Q12 [facility] Last Admin: 07/14/17 09:28 Dose: 5,000 units Sodium Chloride (Sodium Chloride 0.9%) 1,000 mls @ 80 mls/hr IV .[id number] [facility] Last Admin: 07/13/17 22:06 Dose: 80 mls/hr Insulin Aspart (Novolog) 0 unit SC ACHS [facility] PRN Reason: Protocol Last Admin: 07/14/17 16:40 Dose: Not Given Losartan Potassium (Cozaar) 100 mg PO DAILY [facility] Last Admin: 07/14/17 09:28 Dose: 100 mg Pantoprazole Sodium (Protonix Inj) 40 mg IVP DAILY [facility] Last Admin: 07/14/17 09:27 Dose: 40 mg Rosuvastatin Calcium (Crestor) 2.5 mg PO HS [facility] Last Admin: 07/13/17 21:59 Dose: 2.5 mg - Labs Labs: 07/10/17 07:16 07/14/17 07:30 PT 10.9 SECONDS (9.7-12.2) 07/13/17 07:42 INR 1.0 07/13/17 07:42 APTT 36 SECONDS (21-34) H 07/13/17 07:42
--- NOTE | 2017-07-14 17:42 | CP.PCM.PN ---
Subjective - Date & Time of Evaluation Date of Evaluation: 07/14/17 Time of Evaluation: 04:00 - Subjective Subjective: FEELS WELL NO CHEST PAIN Objective - Vital Signs/Intake and Output Vital Signs (last 24 hours): Temp Pulse Resp BP Pulse Ox 97.8 F 93 H 18 114/76 97 07/14/17 15:50 07/14/17 16:00 07/14/17 15:50 07/14/17 15:50 07/14/17 15:50 Intake and Output: 07/14/17 07/14/17 06:59 18:59 Intake Total 940 700 Balance 940 700 - Medications Medications: Current Medications Acetaminophen (Tylenol 325mg Tab) 650 mg PO Q6 PRN PRN Reason: Pain, moderate (4-7) Last Admin: 07/14/17 09:26 Dose: 650 mg Heparin Sodium (Porcine) (Heparin) 5,000 units SC Q12 [facility] Last Admin: 07/14/17 09:28 Dose: 5,000 units Sodium Chloride (Sodium Chloride 0.9%) 1,000 mls @ 80 mls/hr IV .[id number] [facility] Last Admin: 07/13/17 22:06 Dose: 80 mls/hr Insulin Aspart (Novolog) 0 unit SC ACHS [facility] PRN Reason: Protocol Last Admin: 07/14/17 16:40 Dose: Not Given Losartan Potassium (Cozaar) 100 mg PO DAILY [facility] Last Admin: 07/14/17 09:28 Dose: 100 mg Pantoprazole Sodium (Protonix Inj) 40 mg IVP DAILY [facility] Last Admin: 07/14/17 09:27 Dose: 40 mg Rosuvastatin Calcium (Crestor) 2.5 mg PO HS [facility] Last Admin: 07/13/17 21:59 Dose: 2.5 mg - Labs Labs: 07/10/17 07:16 07/14/17 07:30 PT 10.9 SECONDS (9.7-12.2) 07/13/17 07:42 INR 1.0 07/13/17 07:42 APTT 36 SECONDS (21-34) H 07/13/17 07:42 - Constitutional Appears: Non-toxic, Chronically Ill - Head Exam Head Exam: NORMOCEPHALIC - Eye Exam Eye Exam: PERRL - ENT Exam ENT Exam: Mucous Membranes Dry - Neck Exam Neck Exam: absent: Lymphadenopathy - Respiratory Exam Respiratory Exam: Decreased Breath Sounds - Cardiovascular Exam Cardiovascular Exam: REGULAR RHYTHM - GI/Abdominal Exam GI & Abdominal Exam: Distended - Rectal Exam Rectal Exam: Deferred - Exam Exam: NORMAL INSPECTION - Extremities Exam Extremities Exam: absent: Pedal Edema - Back Exam Back Exam: absent: CVA tenderness (L), CVA tenderness (R) - Neurological Exam Neurological Exam: Alert, Awake, Oriented x3 - Psychiatric Exam Psychiatric exam: Normal Mood - Skin Skin Exam: Dry Assessment and Plan (1) Chest pain Status: Acute (2) Abdominal pain Status: Acute (3) Abdominal pain Status: Acute (4) Abnormal EKG Status: Acute (5) Abnormal EKG Status: Acute - Assessment and Plan (Free Text) Assessment: CORONARY ANGIOGRAM LM nL LAD 60% prox LAD lesion LCx nL RCA nL; right dominant circulation LEFT VENTRICULOGRAM LVgram - EF 55% no gradient across the aortic valve IMPRESSION : Single vessel disease NL LV systolic function PLAN: IVUS of the proximal LAD
--- NOTE | 2017-07-14 17:47 | CP.PCM.DIS ---
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 Status: Acute (8) Occlusion of left anterior descending (LAD) artery Status: Acute Hospital Course - Lab Results Lab Results: Micro Results 07/09/17 20:03 Urine Urine Culture - Final Beta Hemolytic Strep Group B Most Recent Lab Values WBC 6.1 K/uL (4.8-10.8) 07/10/17 07:16 RBC 4.13 Mil/uL (3.80-5.20) 07/10/17 07:16 Hgb 13.0 g/dL (11.0-16.0) 07/10/17 07:16 Hct 38.3 % (34.0-47.0) 07/10/17 07:16 MCV 92.6 fL (81.0-99.0) 07/10/17 07:16 MCH 31.5 pg (27.0-31.0) H 07/10/17 07:16 MCHC 34.0 g/dL (33.0-37.0) 07/10/17 07:16 RDW 13.4 % (11.5-14.5) 07/10/17 07:16 Plt Count 292 K/uL (130-400) 07/10/17 07:16 MPV 8.5 fL (7.2-11.7) 07/10/17 07:16 Neut % (Auto) 55.0 % (50.0-75.0) 07/10/17 07:16 Lymph % (Auto) 34.3 % (20.0-40.0) 07/10/17 07:16 [place] % (Auto) 8.3 % (0.0-10.0) 07/10/17 07:16 Eos % (Auto) 1.9 % (0.0-4.0) 07/10/17 07:16 Baso % (Auto) 0.5 % (0.0-2.0) 07/10/17 07:16 Neut # (Auto) 3.4 K/uL (1.8-7.0) 07/10/17 07:16 Lymph # (Auto) 2.1 K/uL (1.0-4.3) 07/10/17 07:16 [place] # (Auto) 0.5 K/uL (0.0-0.8) 07/10/17 07:16 Eos # (Auto) 0.1 K/uL (0.0-0.7) 07/10/17 07:16 Baso # (Auto) 0.0 K/uL (0.0-0.2) 07/10/17 07:16 Neutrophils % (Manual) 86 % (50-75) H 07/09/17 12:22 Band Neutrophils % 5 % (0-2) H 07/09/17 12:22 Lymphocytes % (Manual) 5 % (20-40) L 07/09/17 12:22 Monocytes % (Manual) 4 % (0-10) 07/09/17 12:22 Differential Comment 07/10/17 07:16 Platelet Estimate Normal (NORMAL) 07/09/17 12:22 Ovalocytes Slight 07/09/17 12:22 PT 10.9 SECONDS (9.7-12.2) 07/13/17 07:42 INR 1.0 07/13/17 07:42 APTT 36 SECONDS (21-34) H 07/13/17 07:42 Sodium 141 mmol/L (132-148) 07/14/17 07:30 Potassium 3.9 mmol/L (3.6-5.2) 07/14/17 07:30 Chloride 104 mmol/L (98-107) 07/14/17 07:30 Carbon Dioxide 26 mmol/L (22-30) 07/14/17 07:30 Anion Gap 15 (10-20) 07/14/17 07:30 BUN 16 mg/dL (7-17) 07/14/17 07:30 Creatinine 0.8 mg/dL (0.7-1.2) 07/14/17 07:30 Est GFR ( Amer) > 60 07/14/17 07:30 Est GFR (Non-Af Amer) > 60 07/14/17 07:30 POC Glucose (mg/dL) 135 mg/dL (65-110) H 07/14/17 16:22 Random Glucose 106 mg/dL (65-105) H 07/14/17 07:30 Calcium 8.8 mg/dl (8.6-10.4) 07/14/17 07:30 Total Bilirubin 0.2 mg/dL (0.2-1.3) 07/11/17 08:16 AST 35 U/L (14-36) 07/11/17 08:16 ALT 44 U/L (9-52) 07/11/17 08:16 Alkaline Phosphatase 67 U/L (38-126) 07/11/17 08:16 Total Creatine Kinase 64 U/L (30-135) 07/10/17 07:16 CK-MB (Mass) 0.80 ng/mL (0.0-3.38) 07/10/17 07:16 Troponin I < 0.0120 ng/mL (0.00-0.120) 07/10/17 07:16 Total Protein 6.9 g/dL (6.3-8.3) 07/11/17 08:16 Albumin 3.7 g/dL (3.5-5.0) 07/11/17 08:16 Globulin 3.2 gm/dL (2.2-3.9) 07/11/17 08:16 Albumin/Globulin Ratio 1.2 (1.0-2.1) 07/11/17 08:16 Lipase 114 U/L (23-300) 07/09/17 12:22 Urine Color Yellow (YELLOW) 07/09/17 21:00 Urine Clarity Clear (Clear) 07/09/17 21:00 Urine pH 6.0 (5.0-8.0) 07/09/17 21:00 Ur Specific [place] 1.032 (1.003-1.030) H 07/09/17 21:00 Urine Protein Negative mg/dL (NEGATIVE) 07/09/17 21:00 Urine Glucose (UA) 3+ mg/dL (Normal) H 07/09/17 21:00 Urine Ketones Trace mg/dL (NEGATIVE) 07/09/17 21:00 Urine Blood Negative (NEGATIVE) 07/09/17 21:00 Urine Nitrate Negative (NEGATIVE) 07/09/17 21:00 Urine Bilirubin Negative (NEGATIVE) 07/09/17 21:00 Urine Urobilinogen Normal mg/dL (0.2-1.0) 07/09/17 21:00 Ur Leukocyte Esterase Neg [place]ha/uL (Negative) 07/09/17 21:00 Urine WBC (Auto) 1 /hpf (0-5) 07/09/17 21:00 Urine RBC (Auto) < 1 /hpf (0-3) 07/09/17 21:00 Ur Squamous Epith Cells 1 /hpf (0-5) 07/09/17 21:00 Urine Bacteria Rare (<OCC) 07/09/17 21:00 Urine Osmolality 975 mosm/kg (300-1000) 07/09/17 21:00 Ur Random Creatinine 67.7 mg/dL 07/09/17 21:00 Ur Random Sodium 108 mmol/L 07/09/17 21:00 Urine Chloride 98 mmol/L (32-290) 07/09/17 21:00 Stool Occult Blood Negative (NEGATIVE) 07/11/17 22:20 Discharge Exam - Head Exam Head Exam: NORMOCEPHALIC - Eye Exam Eye Exam: EOMI, PERRL - ENT Exam ENT Exam: Mucous Membranes Dry - Respiratory Exam Respiratory Exam: Decreased Breath Sounds - Cardiovascular Exam Cardiovascular Exam: REGULAR RHYTHM - GI/Abdominal Exam GI & Abdominal Exam: Diminished Bowel Sounds - Rectal Exam Rectal Exam: Deferred - Exam Exam: NORMAL INSPECTION - Extremities Exam Extremities exam: normal inspection - Back Exam Back exam: absent: CVA tenderness (L), CVA tenderness (R) - Neurological Exam Neurological exam: Alert, CN II-XII Intact, Oriented x3, Reflexes Normal - Psychiatric Exam Psychiatric exam: Normal Mood - Skin Skin Exam: Dry Discharge Plan - Follow Up Plan Condition: GOOD Disposition: HOME/ ROUTINE Patient education suggested?: Yes Additional Instructions: CORONARY ANGIOGRAM LM nL LAD 60% prox LAD lesion LCx nL RCA nL; right dominant circulation LEFT VENTRICULOGRAM LVgram - EF 55% no gradient across the aortic valve IMPRESSION : Single vessel disease NL LV systolic function PLAN: IVUS of the proximal LAD
--- NOTE | 2017-07-15 16:48 | CARD ---
APPROVED REPORT EKG Measurement Heart [id number] <Conclusion> Normal sinus rhythm Nonspecific ST abnormality Abnormal ECG
== END 2017-07-14 18:38 | disposition home or self-care (01) | DRG 287 ==
LOC: C.ER 10:52 → C.9E 15:19 → C.6T 16:31 → OBSVTOIN 07-12 14:00
PROVIDERS: ADMIT Internal Medicine; ATTEND Internal Medicine
PROC: B211YZZ Fluoroscopy of Multiple Coronary Arteries using Other Contrast (ICD-10-PCS; 2017-07-13)
PROC: B215YZZ Fluoroscopy of Left Heart using Other Contrast (ICD-10-PCS; 2017-07-13)
PROC: 4A023N7 Measurement of Cardiac Sampling and Pressure, Left Heart, Percutaneous Approach (ICD-10-PCS; principal; 2017-07-13 07:00)
DX: I25.110 Atherosclerotic heart disease of native coronary artery with unstable angina pectoris (principal); E11.40 Type 2 diabetes mellitus with diabetic neuropathy, unspecified; N39.0 Urinary tract infection, site not specified; J98.11 Atelectasis; A05.9 Bacterial foodborne intoxication, unspecified; I10 Essential (primary) hypertension; E05.90 Thyrotoxicosis, unspecified without thyrotoxic crisis or storm; E78.00 Pure hypercholesterolemia, unspecified; M19.90 Unspecified osteoarthritis, unspecified site; E78.5 Hyperlipidemia, unspecified; E86.0 Dehydration; E87.6 Hypokalemia; Z79.4 Long term (current) use of insulin